=== PATIENT | female | born 1940 | race Caucasian/White ===

== ENCOUNTER 2018-04-20 06:42 | Emergency (ER) | payer OTHER ==
[2018-04-20 07:12] LABS: Absolute Neutrophil 6.1 K/uL (1.8-8.0); Basophils % 1.1 % (0-1.3); Eosinophils % 1.8 % (0-4.4); Hematocrit 40.9 % (36.0-45.0); Lymphocytes % 28.8 % (15.3-44.8); MCH 31.5 pg (27.0-35.0); MCV 91.9 fL (80-100); MPV 8.9 fL (7.6-11.3); Monocytes % 9.7 % (3.3-12.3); RBC Red Blood Cell Count 4.45 M/uL (3.86-4.86)
[2018-04-20] MEDS ORDERED: ONDANSETRON 4 MG/2 ML VIAL ONE (07:14)
[2018-04-20] MEDS ORDERED: MECLIZINE HCL 12.5 MG TAB ONE (07:14)
[2018-04-20] MEDS ORDERED: NA CHLORIDE 0.9% 1,000 ML ONE (07:15)
[2018-04-20] MEDS ORDERED: FAMOTIDINE 20 MG/2 ML VIAL IV ONE (07:15)
[2018-04-20 07:32] LABS: ALT/SGPT 22 U/L (12-78); AST/SGOT 18 U/L (15-37); Alkaline Phosphatase 46 U/L (45-117); BUN Blood Urea Nitrogen 29 mg/dL (7-18); Bicarbonate 25 mmol/L (21-32); Bilirubin Direct 0.2 mg/dL (0-0.2); Bilirubin Total 0.4 mg/dL (0.2-1.0); Glucose Level 115 mg/dL (74-106); Magnesium 2.4 mg/dL (1.8-2.4); NT PRO-BNP 168 pg/mL (<450); Potassium 3.8 mmol/L (3.5-5.1); Sodium Level 138 mmol/L (136-145); Troponin (Emerg Dept Use Only) < 0.02 ng/mL (0.0-0.045)
--- NOTE | 2018-04-20 07:37 | RAD REPORT ---
EXAM DESCRIPTION: Saida Single View04/20/2018 7:17 am CLINICAL HISTORY: Chest pain COMPARISON: 2016 FINDINGS: The lungs appear clear of acute infiltrate. The heart is normal size. Small to moderate h iatal hernia IMPRESSION: No acute abnormalities displayed
--- NOTE | 2018-04-20 07:40 | RAD REPORT ---
EXAM DESCRIPTION: CT - Head Brain Wo Cont - 04/20/2018 7:26 am CLINICAL HISTORY: Dizziness COMPARISON: None. TECHNIQUE: Computed axial tomography of the head was obtained. IV contrast was not requested. All CT scans are performed using dose optimization technique as appropriate and may include automated exposure control or mA/KV adjustment according to patient size. FINDINGS: An intracranial bleed is not seen . The ventricles are normal in caliber. No extra-axial fluid collection is noted. Fluid within the sinuses/ mastoids is not seen. IMPRESSION: No acute intracranial abnormality is seen. If patient's symptoms persist MRI of the bra in would be recommended.
[2018-04-20 07:51] LABS: Protime INR 0.98
[2018-04-20 09:23] LABS: Urine Blood NEGATIVE (NEG); Urine Glucose NEGATIVE (NEG); Urine Protein NEGATIVE (NEG)
[2018-04-20 09:31] LABS: Urine Bacteria <20 /HPF (<20); Urine Culture Reflex Order NOT NEEDED; Urine RBC <5 /HPF (NONE SEEN)
--- NOTE | 2018-04-20 10:44 | RAD REPORT ---
EXAM DESCRIPTION: MRI - Brain Wo Cont - 04/20/2018 10:26 am CLINICAL HISTORY: Syncope COMPARISON: Head CT April 20, 2018 TECHNIQUE: Axial, sagittal, and coronal magnetic resonance images of the brain were obtained. Contra st was not requested FINDINGS: Mild signal within periventricular, deep and subcortical white matter likely represent mil d ischemic changes secondary to small vessel disease. Diffusion-weighted/ADC mapping does not reveal evidence of acute infarction. The ventricles are normal caliber. An extra-axial fluid collection is not present Fluid within the sinuses/ mastoids is not seen. IMPRESSION: No acute abnormality displayed
--- NOTE | 2018-04-20 10:49 | RAD REPORT ---
EXAM DESCRIPTION: MRI - MRA Neck W/Wo Cont - 04/20/2018 10:25 am CLINICAL HISTORY: Syncope COMPARISON: None. TECHNIQUE: Magnetic resonance angiogram of the neck was performed. 19 cc MultiHance was administered intravenously. 3D MIPS reconstruction performed FINDINGS: Mild plaque is present within the carotid arteries. A high-grade stenosis not seen. An ane urysm is not seen. An approximately 30-40% stenosis involves the proximal right subclavian artery The vertebral arteries are codominant without visualization of an abnormality. IMPRESSION: Mild plaque within the carotid and right subclavian arteries. NASCET criteria used. Mild 0-49% stenosis Moderate 50-69% stenosis Severe 70-99% stenosis
--- NOTE | 2018-04-20 12:42 | EDPHYS ---
Physician Documentation [facility] Name: Treasure Mosley Age: 77 yrs Sex: Female : 1940 Arrival Date: 04/20/2018 Time: 06:45 Bed 7 Private MD: Sean Duong E ED Physician Samy Bautista HPI: 04/20 07:00 This 77 yrs old Female presents to ER via Wheelchair with complaints of cp Dizziness, Vomiting. 07:00 The patient presents with dizziness, lightheadedness. cp 07:00 Onset: The symptoms/episode began/occurred 2 day(s) ago. Modifying factors: the cp symptoms are aggravated by movement of head. Associated signs and symptoms: Pertinent positives: nausea, vomiting, general weakness, abdominal cramping. Severity of symptoms: in the emergency department the symptoms are unchanged despite home interventions. Patient's baseline: Neuro: alert and fully oriented, Motor: no deficits, Ambulation: walks without assistance, Speech: normal. Historical: - Allergies: 06:58 Aspirin; fc 06:58 PENICILLINS; fc 06:58 steroids; fc - Home Meds: 06:58 lisinopril 10 mg Oral tab 1 tab once daily [Active]; Synthroid 100 mcg Oral tab fc [Active]; folic acid 1 mg oral tab 1 tab once daily [Active]; Timolol Maleate Opht 1 drop [Active]; fenofibrate 145 mg Oral 1 tab once daily [Active]; - PMHx: 06:58 Glaucoma; Hypothyroidism; Hyperlipidemia; Hypertension; fc - PSHx: 06:58 Hysterectomy; fc - Immunization history:: Last tetanus immunization: unknown, Flu vaccine is up to date. - Social history:: Smoking status: Patient/guardian denies using tobacco, Patient/guardian denies using alcohol, street drugs. - Ebola Screening: : Patient negative for fever greater than or equal to 101.5 degrees Fahrenheit, and additional compatible Ebola Virus Disease symptoms Patient denies exposure to infectious person Patient denies travel to an Ebola-affected area in the 21 days before illness onset. ROS: 07:05 Constitutional: Positive for poor PO intake, Negative for body aches, chills, fever. cp 07:05 Eyes: Negative for injury, pain, redness, and discharge. cp 07:05 ENT: Negative for drainage from ear(s), ear pain, sore throat, difficulty swallowing, difficulty handling secretions. 07:05 Cardiovascular: Negative for chest pain, edema, palpitations. 07:05 Respiratory: Negative for cough, shortness of breath, wheezing. 07:05 Abdomen/GI: Positive for nausea, vomiting, abdominal cramps, Negative for diarrhea, constipation, anorexia, black/tarry stool, rectal bleeding. 07:05 Back: Negative for pain at rest, pain with movement, radiated pain. 07:05 : Negative for urinary symptoms. 07:05 MS/extremity: Negative for decreased range of motion, paresthesias. 07:05 Skin: Negative for cellulitis, rash. 07:05 Neuro: Positive for dizziness, general weakness, Negative for altered mental status, headache, loss of consciousness, syncope, near syncope. 07:05 All other systems are negative. Exam: 06:59 ECG was reviewed by the Attending Physician. cp 07:10 Constitutional: The patient appears in no acute distress, alert, awake, cp non-diaphoretic, non-toxic, well developed, well nourished. 07:10 Head/Face: Normocephalic, atraumatic. cp 07:10 Eyes: Periorbital structures: appear normal, Pupils: equal, round, and reactive to light and accomodation, Extraocular movements: intact throughout, Conjunctiva: normal, no exudate, no injection, Sclera: no appreciated abnormality, Lids and lashes: appear normal, bilaterally. 07:10 ENT: External ear(s): are unremarkable, Ear canal(s): are normal, clear, TM's: bulging, is not appreciated, bilaterally, dullness, bilaterally, erythema, is not appreciated, bilaterally, Nose: is normal, Mouth: Lips: moist, Oral mucosa: pink and intact, moist, Posterior pharynx: is normal, airway is patent, no erythema, no exudate, Voice: is normal. 07:10 Neck: ROM/movement: is normal, is supple, without pain, no range of motions limitations, no meningismus, no nuchal rigidity, Lymph nodes: no appreciated lymphadenopathy. 07:10 Chest/axilla: Inspection: normal, Palpation: is normal, no crepitus, no tenderness. 07:10 Cardiovascular: Rate: normal, Rhythm: regular, Pulses: Pulses are 2+ in right radial artery and left radial artery. Heart sounds: murmur, not appreciated, Edema: is not appreciated, JVD: is not appreciated. 07:10 Respiratory: the patient does not display signs of respiratory distress, Respirations: normal, no use of accessory muscles, no retractions, no splinting, no tachypnea, labored breathing, is not present, Breath sounds: are clear throughout, no decreased breath sounds, no stridor, no wheezing. 07:10 Abdomen/GI: Inspection: abdomen appears normal, Bowel sounds: active, all quadrants, Palpation: abdomen is soft and non-tender, in all quadrants, rebound tenderness, is not appreciated, voluntary guarding, is not appreciated, involuntary guarding, is not appreciated. 07:10 Back: pain, is absent, ROM is normal. 07:10 Musculoskeletal/extremity: Extremities: all appear grossly normal, with no appreciated pain with palpation. 07:10 Skin: abscess, not appreciated, no rash present. Vital Signs: 06:45 BP 207 / 99; Pulse 90; Resp 18; Temp 97.9(O); Pulse Ox 98% on R/A; Weight 54.43 kg (R); fc Height 5 ft. 2 in. (157.48 cm) (R); Pain 9/10; 07:12 BP 151 / 89 Supine; Pulse 81; Resp 18; Pulse Ox 98% on R/A; hj 07:12 BP 151 / 87 Sitting; Pulse 85; Resp 18; Pulse Ox 100% on R/A; hj 07:12 BP 161 / 81 Standing; Pulse 86; Resp 18; Pulse Ox 98% on R/A; hj 07:44 BP 150 / 78; Pulse 78; Resp 18; Pulse Ox 100% on R/A; hj 08:24 BP 155 / 78; Pulse 78; Resp 18; Pulse Ox 100% on R/A; hj 09:30 BP 148 / 75; Pulse 75; Resp 18; Pulse Ox 100% on R/A; hj 12:24 BP 156 / 75; Pulse 76; Resp 18; Pulse Ox 100% on R/A; hj 06:45 Body Mass Index 21.95 (54.43 kg, 157.48 cm) NIH Stroke Scale Scores: 07:05 NIHSS Score: 0 hb MDM: 06:47 Patient medically screened. cp 07:00 Differential diagnosis: cardiac arrhythmia, CVA, GI bleed, hypovolemia, idiopathic cp dizziness, TIA, vertigo. 12:40 Data reviewed: vital signs, nurses notes, lab test result(s), EKG, radiologic studies, cp CT scan, MRI, plain films. 12:40 Test interpretation: by ED physician or midlevel provider: ECG, plain radiologic cp studies. 12:40 Counseling: I had a detailed discussion with the patient and/or guardian regarding: the cp historical points, exam findings, and any diagnostic results supporting the discharge/admit diagnosis, the presence of at least one elevated blood pressure reading (>120/80) during this emergency department visit, lab results, radiology results, the need for outpatient follow up, an ruling machine feeder, a neurologist, to return to the emergency department if symptoms worsen or persist or if there are any questions or concerns that arise at home. 12:40 Response to treatment: the patient's symptoms have markedly improved after treatment, cp VSS. Radiology studies negative for acute findings. Patient reports dizziness improved and was observed ambulating to restroom in ED with steady gait, and as a result, I will discharge patient. 04/20 06:57 Order name: Basic Metabolic Panel; Complete Time: 07:41 04/20 07:41 Interpretation: Normal except: GLUC 115; BUN 29; GFR 62. 04/20 06:57 Order name: CBC with Diff; Complete Time: 07:41 04/20 07:41 Interpretation: Normal except: PLT 475. 04/20 06:57 Order name: LFT's; Complete Time: 07:41 04/20 06:57 Order name: Magnesium; Complete Time: 07:41 04/20 06:57 Order name: NT PRO-BNP; Complete Time: 07:41 04/20 06:57 Order name: PT-INR; Complete Time: 08:32 04/20 08:33 Interpretation: Reviewed. 04/20 06:57 Order name: CT Head Brain wo Cont; Complete Time: 07:41 04/20 06:57 Order name: Troponin (emerg Dept Use Only); Complete Time: 07:41 04/20 06:57 Order name: XRAY Chest (1 view); Complete Time: 07:41 04/20 06:57 Order name: Urine Microscopic Only; Complete Time: 10:01 04/20 07:45 Order name: MRI - Brain Wo Cont; Complete Time: 12:07 bd 04/20 12:07 Interpretation: Report reviewed. cp 04/20 09:21 Order name: Urine Dipstick--Ancillary (enter results); Complete Time: 10:01 bd 04/20 06:57 Order name: EKG; Complete Time: 06:59 cp 04/20 06:57 Order name: Cardiac monitoring; Complete Time: 07:00 cp 04/20 06:57 Order name: EKG - Nurse/Tech; Complete Time: 07:00 cp 04/20 06:57 Order name: IV Saline Lock; Complete Time: 07:00 cp 04/20 06:57 Order name: Labs collected and sent; Complete Time: 07:00 cp 04/20 06:57 Order name: O2 Per Protocol; Complete Time: 07:00 cp 04/20 06:57 Order name: O2 Sat Monitoring; Complete Time: 07:00 cp 04/20 06:57 Order name: Orthostatics; Complete Time: 07:15 cp 04/20 06:57 Order name: Urine Dipstick-Ancillary (obtain specimen); Complete Time: 09:14 cp 04/20 10:03 Order name: MRA Neck W/Wo Cont; Complete Time: 12:07 EDMS 04/20 12:08 Order name: Misc. Order: ambulate patient; Complete Time: 12:21 cp EC:59 Rate is 84 beats/min. Rhythm is regular. MN interval is normal. QRS interval is normal. cp QT interval is normal. No ST changes noted. Reviewed by me. Administered Medications: 07:12 Drug: NS 0.9% 1000 ml Route: IV; Rate: 75 ml/hr; Site: right forearm; hj 07:13 Drug: Meclizine 25 mg Route: PO; hb 08:00 Follow up: Response: No adverse reaction hb 07:14 Drug: Pepcid 20 mg Route: IVP; Site: right forearm; hb 08:00 Follow up: Response: No adverse reaction hb 07:14 Drug: NS 0.9% 250 ml Route: IV; Rate: bolus; Site: right forearm; hb 07:40 Follow up: Response: No adverse reaction; IV Status: Completed infusion hb 07:15 Drug: Zofran 4 mg Route: IVP; Site: right forearm; hb 08:00 Follow up: Response: No adverse reaction hb Disposition: 19:03 Co-signature as Attending Physician, Samy Bautista MD. pkl Disposition: 04/20/18 12:41 Discharged to Home. Impression: Dizziness and giddiness, Nausea and vomiting. - Condition is Stable. - Discharge Instructions: Dizziness, Nausea and Vomiting, Adult, Vertigo. - Prescriptions for Meclizine 25 mg Oral Tablet - take 1 tablet by ORAL route every 8 hours As needed; 30 tablet. Pepcid 20 mg Oral Tablet - take 1 tablet by ORAL route every 12 hours for 10 days; 20 tablet. Zofran 4 mg Oral Tablet - take 1 tablet by ORAL route every 12 hours As needed; 20 tablet. - Medication Reconciliation Form, Thank You Letter, Antibiotic Education, Prescription Opioid Use form. - Follow up: Private Physician; When: 1 - 2 days; Reason: Recheck today's complaints. - Problem is new. - Symptoms have improved. NIH Stroke Scale - NIH Stroke Score Date: 04/20/2018 Time: 07:05 Total Score = 0 1a. Level of Consciousness (LOC) - 0(Alert) 1b. Level of Consciousness (LOC) (Year \T\ Age) - 0(Both) 1c. LOC Commands (Open \T\ Closes Eyes/Malware Analyst) - 0(Both) 2. Best Gaze (Lateral Gaze Paresis) - 0(Normal) 3. Visual Field Loss - 0(No visual loss) 4. Facial Palsy - 0(Normal) 5a. Left Arm: Motor (10-second hold) - 0(No drift) 5b. Right Arm: Motor (10-second hold) - 0(No drift) 6a. Left Leg: Motor (5-second hold - always test supine) - 0(No drift) 6b. Right Leg: Motor (5-second hold - always test supine) - 0(No drift) 7. Limb Ataxia (finger/nose \T\ heel/schuster - test with eyes open) - 0(Absent) 8. Sensory Loss (pinprick arms/legs/face) - 0(Normal) 9. Best Language: Aphasia (description/naming/reading) - 0(No aphasia) 10. Dysarthria (speech clarity - read or repeat words) - 0(Normal) 11. Extinction and Inattention (visual/tactile/auditory/spatial/personal) - 0(No abnormality) Initials: Signatures: Dispatcher [employer] EDMS Samy Bautista MD MD pkl Chretien, Felicia RN RN Homar Posada RN RN Christian Scott PA PA cp Valentina Laird, RN RN Corrections: (The following items were deleted from the chart) 12:50 12:41 04/20/2018 12:41 Discharged to Home. Impression: Dizziness and giddiness; hj Nausea and vomiting. Condition is Stable. Forms are Medication Reconciliation Form, Thank You Letter, Antibiotic Education, Prescription Opioid Use. Follow up: Private Physician; When: 1 - 2 days; Reason: Recheck today's complaints. Problem is new. Symptoms have improved. cp
--- NOTE | 2018-04-20 12:42 | ER ---
Nurse's Notes [facility] Name: Treasure Mosley Age: 77 yrs Sex: Female : 1940 Arrival Date: 04/20/2018 Time: 06:45 Bed 7 Private MD: Sean Duong E Diagnosis: Dizziness and giddiness;Nausea and vomiting Presentation: 04/20 06:45 Presenting complaint: Patient states: that she has been having nausea, vomiting, fc dizziness, headache and abd cramping for 2 days. Transition of care: patient was not received from another setting of care. Onset of symptoms was April 18, 2018. Risk Assessment: Do you want to hurt yourself or someone else? Patient reports no desire to harm self or others. Initial Sepsis Screen: Does the patient meet any 2 criteria? No. Patient's initial sepsis screen is negative. Does the patient have a suspected source of infection? No. Patient's initial sepsis screen is negative. Care prior to arrival: None. 06:45 Method Of Arrival: Wheelchair 06:45 Acuity: CARLOS 3 fc Triage Assessment: 07:00 General: Appears in no apparent distress. uncomfortable, Behavior is calm, cooperative, hj appropriate for age. Pain: Denies pain. EENT: No signs and/or symptoms were reported regarding the EENT system. Neuro: Level of Consciousness is awake, alert, obeys commands, Oriented to person, place, time, situation, Appropriate for age Reports dizziness. Cardiovascular: Capillary refill < 3 seconds Patient's skin is warm and dry. Respiratory: Airway is patent Respiratory effort is even, unlabored, Respiratory pattern is regular, symmetrical. GI: Reports. : No signs and/or symptoms were reported regarding the genitourinary system. Derm: No signs and/or symptoms reported regarding the dermatologic system. Musculoskeletal: No signs and/or symptoms reported regarding the musculoskeletal system. Historical: - Allergies: 06:58 Aspirin; 06:58 PENICILLINS; 06:58 steroids; fc - Home Meds: 06:58 lisinopril 10 mg Oral tab 1 tab once daily [Active]; Synthroid 100 mcg Oral tab fc [Active]; folic acid 1 mg oral tab 1 tab once daily [Active]; Timolol Maleate Opht 1 drop [Active]; fenofibrate 145 mg Oral 1 tab once daily [Active]; - PMHx: 06:58 Glaucoma; Hypothyroidism; Hyperlipidemia; Hypertension; fc - PSHx: 06:58 Hysterectomy; fc - Immunization history:: Last tetanus immunization: unknown, Flu vaccine is up to date. - Social history:: Smoking status: Patient/guardian denies using tobacco, Patient/guardian denies using alcohol, street drugs. - Ebola Screening: : Patient negative for fever greater than or equal to 101.5 degrees Fahrenheit, and additional compatible Ebola Virus Disease symptoms Patient denies exposure to infectious person Patient denies travel to an Ebola-affected area in the 21 days before illness onset. Screenin:56 Abuse screen: Denies threats or abuse. Nutritional screening: No deficits noted. fc Tuberculosis screening: No symptoms or risk factors identified. Fall Risk None identified. Assessment: 06:57 General: Appears uncomfortable, Behavior is cooperative. Pain: Complains of pain in Pt la1 C/O headache and belly pain before vomiting. Neuro: Level of Consciousness is awake, alert, obeys commands, Oriented to person, place, time, situation, Service Desk Technician are equal bilaterally Moves all extremities. Full function Gait is steady, Speech is normal, Facial symmetry appears normal, Pupils are PERRLA. Cardiovascular: Denies chest pain, shortness of breath, Heart tones S1 S2 present. Respiratory: Airway is patent Respiratory effort is even, unlabored, Respiratory pattern is regular, symmetrical, Breath sounds are clear bilaterally. GI: Abdomen is round non-distended, Pt is actively vomiting Bowel sounds present X 4 quads. Abd is soft and non tender X 4 quads. : No signs and/or symptoms were reported regarding the genitourinary system. 07:43 Reassessment: Patient appears in no apparent distress at this time. Patient and/or hb family updated on plan of care and expected duration. Pain level reassessed. Patient is alert, oriented x 3, equal unlabored respirations, skin warm/dry/pink. Patient denies pain at this time. Patient states symptoms have improved. 08:23 Reassessment: Patient and/or family updated on plan of care and expected duration. Pain hj level reassessed. Patient is alert, oriented x 3, equal unlabored respirations, skin warm/dry/pink. Patient states symptoms have improved. 09:30 Reassessment: Patient and/or family updated on plan of care and expected duration. Pain hj level reassessed. Patient is alert, oriented x 3, equal unlabored respirations, skin warm/dry/pink. awaiting results and POC;. 10:30 Reassessment: Patient and/or family updated on plan of care and expected duration. Pain hj level reassessed. Patient is alert, oriented x 3, equal unlabored respirations, skin warm/dry/pink. Patient denies pain at this time. Patient states symptoms have improved. 11:30 Reassessment: Patient and/or family updated on plan of care and expected duration. Pain hj level reassessed. Patient is alert, oriented x 3, equal unlabored respirations, skin warm/dry/pink. provider in room for POC:. 12:22 Reassessment: pt able to ambulate to bathroom back to room with steady gait; provider hj aware;. Vital Signs: 06:45 BP 207 / 99; Pulse 90; Resp 18; Temp 97.9(O); Pulse Ox 98% on R/A; Weight 54.43 kg (R); fc Height 5 ft. 2 in. (157.48 cm) (R); Pain 9/10; 07:12 BP 151 / 89 Supine; Pulse 81; Resp 18; Pulse Ox 98% on R/A; hj 07:12 BP 151 / 87 Sitting; Pulse 85; Resp 18; Pulse Ox 100% on R/A; hj 07:12 BP 161 / 81 Standing; Pulse 86; Resp 18; Pulse Ox 98% on R/A; hj 07:44 BP 150 / 78; Pulse 78; Resp 18; Pulse Ox 100% on R/A; hj 08:24 BP 155 / 78; Pulse 78; Resp 18; Pulse Ox 100% on R/A; hj 09:30 BP 148 / 75; Pulse 75; Resp 18; Pulse Ox 100% on R/A; hj 12:24 BP 156 / 75; Pulse 76; Resp 18; Pulse Ox 100% on R/A; hj 06:45 Body Mass Index 21.95 (54.43 kg, 157.48 cm) fc NIH Stroke Scale Scores: 07:05 NIHSS Score: 0 hb ED Course: 06:45 Patient arrived in ED. es 06:45 Sean Duong MD is Private Physician. es 06:45 Arm band placed on Patient placed in an exam room, on a stretcher. fc 06:45 Patient has correct armband on for positive identification. Placed in gown. Bed in low fc position. Call light in reach. patient monitor on. Pulse ox on. NIBP on. 06:45 No provider procedures requiring assistance completed. fc 06:47 Christian Marx PA is PHCP. cp 06:47 Samy Bautista MD is Attending Physician. cp 06:55 Triage completed. fc 06:59 Inserted saline lock: 20 gauge in right forearm, using aseptic technique. Blood la1 collected. 07:00 Homar Wells, KULDEEP is Primary Nurse. hj 07:02 EKG done, by underwriting technician. reviewed by Christian LOPEZ. at1 07:18 XRAY Chest (1 view) In Process Unspecified. EDMS 07:25 CT Head Brain wo Cont In Process Unspecified. EDMS 07:26 CT completed. Patient tolerated procedure well. Patient moved back from CT. bq 09:15 Patient moved to MRI via wheelchair. lc 09:15 Urine Microscopic Only Sent. hj 10:03 MRI - Brain Wo Cont In Process Unspecified. EDMS 10:25 MRA Neck W/Wo Cont In Process Unspecified. EDMS 10:26 Patient moved back from MRI. lc 12:49 IV discontinued, intact, bleeding controlled, No redness/swelling at site. Pressure hj dressing applied. Administered Medications: 07:12 Drug: NS 0.9% 1000 ml Route: IV; Rate: 75 ml/hr; Site: right forearm; hj 07:13 Drug: Meclizine 25 mg Route: PO; hb 08:00 Follow up: Response: No adverse reaction hb 07:14 Drug: Pepcid 20 mg Route: IVP; Site: right forearm; hb 08:00 Follow up: Response: No adverse reaction hb 07:14 Drug: NS 0.9% 250 ml Route: IV; Rate: bolus; Site: right forearm; hb 07:40 Follow up: Response: No adverse reaction; IV Status: Completed infusion hb 07:15 Drug: Zofran 4 mg Route: IVP; Site: right forearm; hb 08:00 Follow up: Response: No adverse reaction hb Outcome: 12:41 Discharge ordered by . cp 12:49 Discharged to home ambulatory, with family. hj 12:49 Condition: stable 12:49 Discharge instructions given to patient, family, Instructed on discharge instructions, follow up and referral plans. medication usage, Demonstrated understanding of instructions, follow-up care, medications, Prescriptions given X 3. 12:50 Patient left the ED. hj NIH Stroke Scale - NIH Stroke Score Date: 04/20/2018 Time: 07:05 Total Score = 0 1a. Level of Consciousness (LOC) - 0(Alert) 1b. Level of Consciousness (LOC) (Year \T\ Age) - 0(Both) 1c. LOC Commands (Open \T\ Closes Eyes/Tooth Cutter Pinion) - 0(Both) 2. Best Gaze (Lateral Gaze Paresis) - 0(Normal) 3. Visual Field Loss - 0(No visual loss) 4. Facial Palsy - 0(Normal) 5a. Left Arm: Motor (10-second hold) - 0(No drift) 5b. Right Arm: Motor (10-second hold) - 0(No drift) 6a. Left Leg: Motor (5-second hold - always test supine) - 0(No drift) 6b. Right Leg: Motor (5-second hold - always test supine) - 0(No drift) 7. Limb Ataxia (finger/nose \T\ heel/schuster - test with eyes open) - 0(Absent) 8. Sensory Loss (pinprick arms/legs/face) - 0(Normal) 9. Best Language: Aphasia (description/naming/reading) - 0(No aphasia) 10. Dysarthria (speech clarity - read or repeat words) - 0(Normal) 11. Extinction and Inattention (visual/tactile/auditory/spatial/personal) - 0(No abnormality) Initials: hb Signatures: Dispatcher [employer] Betty Rainey Lorena lc Quilty, Betty bq Chretien, Felicia RN RN Rosa Maria Rodriguez, shift mgr EKG Tat1 [place] RN RN la1 Homar Wells RN RN hj Page, Corey, PA PA cp Baxter, Heather RN RN hb
--- NOTE | 2018-04-21 14:38 | EKG ---
Test Date: 2018-04-20 Test Time: 06:56:22 [employer]: SANDRA MEASUREMENT RESULTS: Intervals: Rate: 84 FL: 160 QRSD: 82 QT: 380 QTc: 449 [place]: P: 60 FL: 160 QRS: 24 T: 42 INTERPRETIVE STATEMENTS: Normal sinus rhythm Normal ECG Compared to ECG 05/02/2010 10:24:30 No significant changes Electronically Signed On 04-21-18 14:36:56 MAT GAUGER by Elijah Alvarado
== END 2018-04-20 12:50 | disposition home or self-care (01) ==
LOC: ER 06:42
DX: R11.2 Nausea with vomiting, unspecified (principal); I10 Essential (primary) hypertension; E78.5 Hyperlipidemia, unspecified; E03.9 Hypothyroidism, unspecified; Z88.0 Allergy status to penicillin; Z88.6 Allergy status to analgesic agent; Z88.8 Allergy status to other drugs, medicaments and biological substances
CPT/HCPCS: 36415; 70450; 70549; 70551; 71045; 80048; 80076; 83735; 83880; 84484; 85025; 85610; 93005; A9577; J2405; J7030; 81003; 81015; 96365; 96375; 99285

== ENCOUNTER 2018-09-21 08:55 | Emergency (ER) | payer OTHER ==
[2018-09-21 10:25] LABS: Absolute Lymphocytes (CBC) 1.8 K/uL (0.7-4.9); Absolute Monocytes 1.2 K/uL (0.1-1.3); Absolute Neutrophil 12.7 K/uL (1.8-8.0); Basophils % 0.5 % (0-1.3); Eosinophils % 0.3 % (0-4.4); Hematocrit 41.8 % (36.0-45.0); Lymphocytes % 11.1 % (15.3-44.8); MPV 8.5 fL (7.6-11.3); Monocytes % 7.5 % (3.3-12.3); RBC Red Blood Cell Count 4.58 M/uL (3.86-4.86)
[2018-09-21 10:32] LABS: Protime INR 1.08
[2018-09-21 10:55] LABS: ALT/SGPT 19 U/L (12-78); AST/SGOT 17 U/L (15-37); Albumin 3.8 g/dL (3.4-5.0); Alkaline Phosphatase 62 U/L (45-117); BUN Blood Urea Nitrogen 18 mg/dL (7-18); Bicarbonate 26 mmol/L (21-32); Bilirubin Direct 0.1 mg/dL (0-0.2); Bilirubin Total 0.4 mg/dL (0.2-1.0); Glucose Level 89 mg/dL (74-106); Magnesium 2.3 mg/dL (1.8-2.4); NT PRO-BNP 429 pg/mL (<450); Potassium 4.1 mmol/L (3.5-5.1); Protein, Total 8.9 g/dL (6.4-8.2); Sodium Level 137 mmol/L (136-145); Troponin (Emerg Dept Use Only) < 0.02 ng/mL (0.0-0.045)
--- NOTE | 2018-09-21 11:15 | RAD REPORT ---
EXAM DESCRIPTION: RAD - Chest Single View - 09/21/2018 11:07 am CLINICAL HISTORY: COUGH Chest pain. COMPARISON: Chest Single View dated 04/20/2018; Chest Single View dated 04/18/2016; CHEST PA AND LAT 2 VIEW dated 05/02/2010 FINDINGS: Portable technique limits examination quality. The lungs are grossly clear. The heart is normal in size. No displaced fractures.Small hiatal hernia. IMPRESSION: No acute intrathoracic process suspected.
[2018-09-21] MEDS ORDERED: CEFTRIAXONE/SWI 1gm 2 GM/20 ML SYR ONE (11:22)
--- NOTE | 2018-09-21 11:25 | RAD REPORT ---
EXAM DESCRIPTION: CT - Head Brain Wo Cont - 09/21/2018 11:16 am CLINICAL HISTORY: Fever, headache, sore throat, stiff neck COMPARISON: CT head March 2018 TECHNIQUE: Axial 5 mm thick images of the head were obtained without IV contrast. All CT scans are performed using dose optimization technique as appropriate and may include automated exposure control or mA/KV adjustment according to patient size. FINDINGS: No intracranial hemorrhage, mass, edema or shift of mid-line structures. No acute infarcti on changes seen. No cortical edema or sulcal effacement. Atrophy changes are mild. There are chronic ischemic changes in the white matter. 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 Intracranial findings are not clearly different from comparison. Ventricles are in p roportion to any volume loss. No acute globe or orbital content abnormality. Mastoid air cells and visualized portions of the paranasal sinuses are clear. No acute bony findings. IMPRESSION: Negative non-contrast CT head examination for acute finding. Intracranial findings are similar to March 2018.
--- NOTE | 2018-09-21 11:32 | RAD REPORT ---
EXAM DESCRIPTION: CT - Soft Tissue Neck W/Contr - 09/21/2018 11:16 am CLINICAL HISTORY: Headache, fever, sore throat, stiff neck COMPARISON: None TECHNIQUE: During dynamic enhancement using 100 milliliters nonionic IV contrast, axial 5 millimeter thick images of the neck were obtained. All CT scans are performed using dose optimization technique as appropriate and may include automated exposure control or mA/KV adjustment according to patient size. FINDINGS: Intracranial contents are grossly normal. Fall CT head examination was performed and separ ately detailed. Mastoid air cells are clear. Paranasal sinuses are clear. No dissection or other significant vascular finding identified. Cervical esophagus shows no circumferential wall thickening, mass or edema. There is no prevertebral soft tissue thickening. The parotid, submandibular and thyroid gland tissue show no suspicious findin gs. No mass or lymphadenopathy in the cervical soft tissues. A few scattered lymph nodes are present well under 1 centimeter in size. No pharyngeal mucosal mass or true asymmetry. Parapharyngeal fat is normal. 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 No tonsillar mass or abscess. No tongue base abnormality. Epiglottis is normal. No laryngeal mass. Cervical bodies are normal in height. No compression or acute vertebral body finding. There is a slig ht retrolisthesis of C3 on C4. The C2-3 through C6-7 disc spaces all show loss in disc height. Anteri or endplate spurring seen at all these levels. Central canal detail is inherently limited. There does appear to be a very large 8 millimeter midline disc herniation at C2-3. This causes a very severe central spinal stenosis. No foraminal stenosis. P rominent protruding disc material and endplate spurring at C3-4 also causes very significant central spinal stenosis down to 4- 5 mm. Bilateral bony foraminal encroachment is present. Slight retrolisthe sis of C4 contributes to central spinal stenosis of 7- 8 mm. Mild bilateral foraminal encroachment pr esent. IMPRESSION: No prevertebral or tonsillar abscess. No pharyngeal mucosal mass or suspicious soft tiss ue finding identifiable. No abnormal lymphadenopathy. Central canal detail is inherently limited; however, there appears to be a very large 8 millimeter C2 -3 disc herniation causing severe cord flattening and severe central spinal stenosis. Significant protruding disc material and spurring cause cord flattening in very significant central s elie stenosis at C3-4.
[2018-09-21 11:56] LABS: Urine Blood TRACE (NEG); Urine Glucose NEGATIVE (NEG); Urine Protein NEGATIVE (NEG); Urine Specific Gravity 1.015 (1.005-1.030)
--- NOTE | 2018-09-21 12:01 | ER ---
Nurse's Notes [facility] Name: Treasure Mosley Age: 78 yrs Sex: Female : 1940 Arrival Date: 09/21/2018 Time: 09:00 Bed 5 Private MD: Sean Duong E Diagnosis: Strain of muscle, fascia and tendon at neck level;Cervical disc [id number] SEVERE 8MM HERNIATION, CORD FLATENING Presentation: 09/21 09:05 Presenting complaint: Patient states: stiff neck x 3-4 days. Pt reports before that, ss approximately 10 days ago, she had a sore throat and ear ache that she began taking antibiotics for. Transition of care: patient was not received from another setting of care. Onset of symptoms was September 17, 2018. Risk Assessment: Do you want to hurt yourself or someone else? Patient reports no desire to harm self or others. Initial Sepsis Screen: Does the patient meet any 2 criteria? No. Patient's initial sepsis screen is negative. Does the patient have a suspected source of infection? No. Patient's initial sepsis screen is negative. Care prior to arrival: None. 09:05 Method Of Arrival: Ambulatory ss 09:05 Acuity: CARLOS 3 ss Triage Assessment: 09:11 General: Appears in no apparent distress. uncomfortable, Behavior is calm, cooperative, tw2 appropriate for age. Pain: Complains of pain in neck. EENT: No signs and/or symptoms were reported regarding the EENT system. Neuro: Level of Consciousness is awake, alert, obeys commands, Oriented to person, place, time, situation. Cardiovascular: Capillary refill < 3 seconds. Respiratory: Airway is patent Respiratory effort is even, unlabored, Respiratory pattern is regular, symmetrical. GI: Reports nausea, "from the pain". : No signs and/or symptoms were reported regarding the genitourinary system. Derm: No signs and/or symptoms reported regarding the dermatologic system. Musculoskeletal: Range of motion: limited in neck Reports pain in neck. Historical: - Allergies: 09:12 Aspirin; ss 09:12 PENICILLINS; ss 09:12 steroids; ss - Home Meds: 09:13 fenofibrate 145 MG Oral 1 tab once daily [Active]; folic acid 1 mg Oral tab 1 tab once tw2 daily [Active]; lisinopril 10 mg Oral tab 1 tab once daily [Active]; Synthroid 100 mcg Oral tab [Active]; Timolol Maleate Opht 1 drop [Active]; - PMHx: 09:12 Glaucoma; Hyperlipidemia; Hypertension; Hypothyroidism; ss - PSHx: 09:12 Hysterectomy; ss - Immunization history:: Adult Immunizations unknown. - Social history:: Smoking status: Patient/guardian denies using tobacco. - Ebola Screening: : Patient denies exposure to infectious person Patient denies travel to an Ebola-affected area in the 21 days before illness onset. - Family history:: not pertinent. Screenin:13 Abuse screen: Denies threats or abuse. Nutritional screening: No deficits noted. tw2 Tuberculosis screening: No symptoms or risk factors identified. Fall Risk None identified. Assessment: :13 Reassessment: see triage assessment. tw2 11:01 Reassessment: Patient appears in no apparent distress at this time. No changes from tw2 previously documented assessment. Patient and/or family updated on plan of care and expected duration. Pain level reassessed. Patient is alert, oriented x 3, equal unlabored respirations, skin warm/dry/pink. 12:23 Reassessment: Patient appears in no apparent distress at this time. No changes from tw2 previously documented assessment. Patient and/or family updated on plan of care and expected duration. Pain level reassessed. Patient is alert, oriented x 3, equal unlabored respirations, skin warm/dry/pink. 12:23 Reassessment: pt denies need for pain medicine at this time. tw2 13:05 Reassessment: Patient appears in no apparent distress at this time. No changes from tw2 previously documented assessment. Patient and/or family updated on plan of care and expected duration. Pain level reassessed. Patient is alert, oriented x 3, equal unlabored respirations, skin warm/dry/pink. 13:41 Reassessment: Patient appears in no apparent distress at this time. No changes from tw2 previously documented assessment. Patient and/or family updated on plan of care and expected duration. Pain level reassessed. Patient is alert, oriented x 3, equal unlabored respirations, skin warm/dry/pink. Vital Signs: 09:12 BP 162 / 77; Pulse 105; Resp 16; Temp 97.6(O); Pulse Ox 99% on R/A; Weight 54.43 kg; Height 5 ft. 2 in. (157.48 cm); Pain 9/10; 09:31 BP 134 / 66; Pulse 102; Resp 17; Pulse Ox 99% on R/A; tw2 11:01 BP 149 / 80; Pulse 100; Resp 17; Pulse Ox 99% on R/A; tw2 12:23 BP 131 / 69; Pulse 106; Resp 17; Pulse Ox 100% ; tw2 13:05 BP 146 / 76; Pulse 105; Resp 19; Pulse Ox 98% on R/A; tw2 13:41 BP 149 / 86; Pulse 109; Resp 19; Pulse Ox 99% on R/A; tw2 09:12 Body Mass Index 21.95 (54.43 kg, 157.48 cm) ED Course: 09:00 Patient arrived in ED. dl4 09:01 Sean Duong MD is Private Physician. dl4 09:01 Bed in low position. Call light in reach. Pulse ox on. NIBP on. tw2 09:07 Triage completed. ss 09:10 Christian Tinoco MD is Attending Physician. [facility] 09:11 Sofy Buthcer, KULDEEP is Primary Nurse. tw2 09:12 Arm band placed on. tw2 10:15 First set of blood cultures drawn. Inserted saline lock: 22 gauge in right antecubital tw2 area, using aseptic technique. Blood collected. 10:23 Radiology exam delayed due to lab results not completed at this time. (BUN/Creatinine). 10:27 EKG done, by medical technical writer. reviewed by Christian Tinoco MD. sm3 11:01 Second set of blood cultures drawn. tw2 11:07 XRAY Chest (1 view) In Process Unspecified. EDMS 11:16 CT Soft Tissue Neck W/contr In Process Unspecified. EDMS 11:17 Head Brain Wo Cont In Process Unspecified. EDMS 11:18 CT completed. Patient tolerated procedure well. Patient moved to CT via wheelchair. sw Patient moved to radiology. Patient moved back from CT. 13:41 No provider procedures requiring assistance completed. Patient transferred, IV remains tw2 in place. Administered Medications: 12:00 Drug: Rocephin - (cefTRIAXone) 2 grams {Note: IVP available only from pharmacy.} Route: tw2 IVPB; Infused Over: 5 mins; Site: left antecubital; 12:24 Follow up: Response: No adverse reaction; IV Status: Completed infusion tw2 12:20 Drug: Decadron - Dexamethasone 10 mg Route: IVP; Site: left antecubital; tw2 12:30 Follow up: Response: No adverse reaction tw2 Outcome: 12:00 ER care complete, transfer ordered by MD. buckner 13:41 Transferred by ground EMS to [facility]. tw2 13:41 Condition: stable 13:41 Instructed on follow up and referral plans. the need for transfer, Demonstrated understanding of follow-up care. 13:48 Patient left the ED. tw2 Signatures: Dispatcher [employer] EDMS Christian Tinoco MD MD cha Jones, Celeste Douglas, RN RN Florinda Horner Tara RN RN tw2 Vikki Carmichael 3 Khurram Mathews dl4 Corrections: (The following items were deleted from the chart) 11:07 10:50 In radiology for Head Brain Wo Cont+CT.RAD.BRZ. ED EDMS
--- NOTE | 2018-09-21 12:01 | EDPHYS ---
Physician Documentation [facility] Name: Treasure Mosley Age: 78 yrs Sex: Female : 1940 Arrival Date: 09/21/2018 Time: 09:00 Bed 5 Private MD: Sean Duong E ED Physician Christian Tinoco HPI: 09/21 09:51 This 78 yrs old Female presents to ER via Ambulatory with complaints of Stiff sita Neck. 09:51 The patient or guardian complains of decreased range of motion, pain. The symptoms are sita located diffusely. Onset: The symptoms/episode began/occurred 3 day(s) ago. Context: The problem was sustained at home. Associated signs and symptoms: The patient has no apparent associated signs or symptoms. The pain does not radiate. Modifying factors: The symptoms are alleviated by nothing. the symptoms are aggravated by movement. Severity of symptoms: At their worst the symptoms were moderate, in the emergency department the symptoms are unchanged. The patient has not experienced similar symptoms in the past. Historical: - Allergies: 09:12 Aspirin; ss 09:12 PENICILLINS; ss 09:12 steroids; ss - Home Meds: 09:13 fenofibrate 145 MG Oral 1 tab once daily [Active]; folic acid 1 mg Oral tab 1 tab once tw2 daily [Active]; lisinopril 10 mg Oral tab 1 tab once daily [Active]; Synthroid 100 mcg Oral tab [Active]; Timolol Maleate Opht 1 drop [Active]; - PMHx: 09:12 Glaucoma; Hyperlipidemia; Hypertension; Hypothyroidism; ss - PSHx: 09:12 Hysterectomy; ss - Immunization history:: Adult Immunizations unknown. - Social history:: Smoking status: Patient/guardian denies using tobacco. - Ebola Screening: : Patient denies exposure to infectious person Patient denies travel to an Ebola-affected area in the 21 days before illness onset. - Family history:: not pertinent. ROS: 09:51 Constitutional: Negative for fever, chills, and weight loss, Eyes: Negative for injury, sita pain, redness, and discharge, ENT: Negative for injury, pain, and discharge, Cardiovascular: Negative for chest pain, palpitations, and edema, Respiratory: Negative for shortness of breath, cough, wheezing, and pleuritic chest pain, Abdomen/GI: Negative for abdominal pain, nausea, vomiting, diarrhea, and constipation, Back: Negative for injury and pain, : Negative for injury, bleeding, discharge, and swelling, MS/Extremity: Negative for injury and deformity, Skin: Negative for injury, rash, and discoloration, Neuro: Negative for headache, weakness, numbness, tingling, and seizure, Psych: Negative for depression, anxiety, suicide ideation, homicidal ideation, and hallucinations, Allergy/Immunology: Negative for hives, rash, and allergies, Endocrine: Negative for neck swelling, polydipsia, polyuria, polyphagia, and marked weight changes, Hematologic/Lymphatic: Negative for swollen nodes, abnormal bleeding, and unusual bruising. 09:51 Neck: Positive for pain with movement, pain at rest. Exam: 09:51 Constitutional: This is a well developed, well nourished patient who is awake, alert, sita and in no acute distress. Head/Face: Normocephalic, atraumatic. Eyes: Pupils equal round and reactive to light, extra-ocular motions intact. Lids and lashes normal. Conjunctiva and sclera are non-icteric and not injected. Cornea within normal limits. Periorbital areas with no swelling, redness, or edema. ENT: Nares patent. No nasal discharge, no septal abnormalities noted. Tympanic membranes are normal and external auditory canals are clear. Oropharynx with no redness, swelling, or masses, exudates, or evidence of obstruction, uvula midline. Mucous membranes moist. Chest/axilla: Normal chest wall appearance and motion. Nontender with no deformity. No lesions are appreciated. Cardiovascular: Regular rate and rhythm with a normal S1 and S2. No gallops, murmurs, or rubs. Normal PMI, no JVD. No pulse deficits. Respiratory: Lungs have equal breath sounds bilaterally, clear to auscultation and percussion. No rales, rhonchi or wheezes noted. No increased work of breathing, no retractions or nasal flaring. Abdomen/GI: Soft, non-tender, with normal bowel sounds. No distension or tympany. No guarding or rebound. No evidence of tenderness throughout. Back: No spinal tenderness. No costovertebral tenderness. Full range of motion. Female : Normal external genitalia. Skin: Warm, dry with normal turgor. Normal color with no rashes, no lesions, and no evidence of cellulitis. MS/ Extremity: Pulses equal, no cyanosis. Neurovascular intact. Full, normal range of motion. Neuro: Awake and alert, GCS 15, oriented to person, place, time, and situation. Cranial nerves II-XII grossly intact. Motor strength 5/5 in all extremities. Sensory grossly intact. Cerebellar exam normal. Normal gait. Psych: Awake, alert, with orientation to person, place and time. Behavior, mood, and affect are within normal limits. 09:51 Neck: ROM/movement: limited range of motion, Meningeal signs: are not present, Kernig's sign is negative, Brudzinski's sign is negative, nuchal rigidity, is present. Vital Signs: 09:12 BP 162 / 77; Pulse 105; Resp 16; Temp 97.6(O); Pulse Ox 99% on R/A; Weight 54.43 kg; ss Height 5 ft. 2 in. (157.48 cm); Pain 9/10; 09:31 BP 134 / 66; Pulse 102; Resp 17; Pulse Ox 99% on R/A; tw2 11:01 BP 149 / 80; Pulse 100; Resp 17; Pulse Ox 99% on R/A; tw2 12:23 BP 131 / 69; Pulse 106; Resp 17; Pulse Ox 100% ; tw2 13:05 BP 146 / 76; Pulse 105; Resp 19; Pulse Ox 98% on R/A; tw2 13:41 BP 149 / 86; Pulse 109; Resp 19; Pulse Ox 99% on R/A; tw2 09:12 Body Mass Index 21.95 (54.43 kg, 157.48 cm) ss MDM: 09:10 Patient medically screened. [facility] 09:55 Data reviewed: vital signs, nurses notes, lab test result(s), EKG, radiologic studies, [facility] CT scan, plain films. 09/21 09:51 Order name: Basic Metabolic Panel; Complete Time: 11:16 [facility] 09/21 09:51 Order name: CBC with Diff; Complete Time: 11:16 [facility] 09/21 09:51 Order name: LFT's; Complete Time: 11:16 [facility] 09/21 09:51 Order name: Magnesium; Complete Time: 11:16 [facility] 09/21 09:51 Order name: NT PRO-BNP; Complete Time: 11:16 [facility] 09/21 09:51 Order name: PT-INR; Complete Time: 11:16 [facility] 09/21 09:51 Order name: Troponin (emerg Dept Use Only); Complete Time: 11:16 [facility] 09/21 09:51 Order name: XRAY Chest (1 view); Complete Time: 11:16 [facility] 09/21 09:51 Order name: Blood Culture Adult (2) 09/21 09:51 Order name: Urine Culture 09/21 09:51 Order name: Procalcitonin; Complete Time: 11:16 [facility] 09/21 09:56 Order name: Lipase; Complete Time: 11:16 [facility] 09/21 11:41 Order name: Urine Dipstick--Ancillary (enter results); Complete Time: 12:01 09/21 09:51 Order name: EKG; Complete Time: 09:53 [facility] 09/21 09:51 Order name: Cardiac monitoring; Complete Time: 09:57 [facility] 09/21 09:51 Order name: EKG - Nurse/Tech; Complete Time: 10:37 [facility] 09/21 09:51 Order name: IV Saline Lock; Complete Time: 10:37 [facility] 09/21 09:51 Order name: Labs collected and sent; Complete Time: 10:37 [facility] 09/21 09:51 Order name: O2 Per Protocol; Complete Time: 09:57 [facility] 09/21 09:51 Order name: O2 Sat Monitoring; Complete Time: 09:57 [facility] 09/21 09:51 Order name: Urine Dipstick-Ancillary (obtain specimen); Complete Time: 11:45 [facility] 09/21 09:51 Order name: Lumbar Puncture Consent; Complete Time: 10:37 [facility] 09/21 09:51 Order name: Lumbar Puncture Setup; Complete Time: 10:37 [facility] 09/21 09:55 Order name: CT Soft Tissue Neck W/contr; Complete Time: 11:51 [facility] 09/21 11:11 Order name: Head Brain Wo Cont; Complete Time: 11:51 EDMS Administered Medications: 12:00 Drug: Rocephin - (cefTRIAXone) 2 grams {Note: IVP available only from pharmacy.} Route: tw2 IVPB; Infused Over: 5 mins; Site: left antecubital; 12:24 Follow up: Response: No adverse reaction; IV Status: Completed infusion tw2 12:20 Drug: Decadron - Dexamethasone 10 mg Route: IVP; Site: left antecubital; tw2 12:30 Follow up: Response: No adverse reaction tw2 Disposition: 09/21/18 12:[address] [facility]. Diagnosis are Strain of muscle, fascia and tendon at neck level, Cervical disc disorders - C3-4 SEVERE 8MM HERNIATION, CORD FLATENING. - Reason for transfer: Higher level of care. - Accepting physician is to [facility] Dr. Anders. - Condition is Stable. - Problem is new. - Symptoms have improved. Signatures: Dispatcher [employer] EDMS Christian Tinoco MD MD cha Smirch, Shelby, RN RN ss Sofy Butcher RN RN tw2 Corrections: (The following items were deleted from the chart) 11:07 09:53 Head Brain Wo Cont+CT.RAD.BRZ ordered. [facility] EDMT 13:48 12:00 09/21/2018 12:[address] [facility]. Diagnosis is tw2 Strain of muscle, fascia and tendon at neck level; Cervical disc disorders - C3-4 SEVERE 8MM HERNIATION, CORD FLATENING. Reason for transfer: Higher level of care. Accepting physician is to [facility] Dr. Anders. Condition is Stable. Problem is new. Symptoms have improved. sita
[2018-09-21] MEDS ORDERED: DEXAMETHASONE 10 MG/ML VIAL ONE (12:24)
--- NOTE | 2018-09-21 12:39 | EKG ---
Test Date: 2018-09-21 Test Time: 10:03:31 Fixture Maker: FLYNN MEASUREMENT RESULTS: Intervals: Rate: 99 MI: 140 QRSD: 74 QT: 332 QTc: 426 [place]: P: 59 MI: 140 QRS: 18 T: 37 INTERPRETIVE STATEMENTS: Normal sinus rhythm Normal ECG Compared to ECG 04/20/2018 06:56:22 No significant changes Electronically Signed On 09-21-18 12:38:17 CDT by Elijah Alvarado
== END 2018-09-21 13:48 | disposition short-term general hospital (02) ==
LOC: ER 08:55
DX: S16.1XXA Strain of muscle, fascia and tendon at neck level, initial encounter (principal); M50.21 Other cervical disc displacement, high cervical region; M50.81 Other cervical disc disorders, high cervical region; I10 Essential (primary) hypertension; E03.9 Hypothyroidism, unspecified; E78.5 Hyperlipidemia, unspecified; Z88.6 Allergy status to analgesic agent; Z88.0 Allergy status to penicillin; Z88.8 Allergy status to other drugs, medicaments and biological substances
CPT/HCPCS: 96365; 93005; 87040 ×2; 87088; 85025; 87086; 80048; 36415; 83735; 85610; 80076; 81003; 84484; 83690; 84145; 83880; 70450; 70491; 71045; 96375; 99285; Q9967; J1100; J0696

== ENCOUNTER 2019-04-13 04:58 | Emergency (ER) | payer OTHER ==
--- OUTSIDE RECORDS SUMMARY | 2019-04-13 05:01 | XMS REPORT ---
:1940 [facility] Address [address] [place] [address] Dr. Mo [address] [place] [id number] Care Team Providers Name Role Phone MARIANA ALEXANDRE Unavailable Unavailable Problems This patient has no known problems. Allergies, Adverse Reactions, Alerts This patient has no known allergies or adverse reactions. Medications This patient has no known medications. Results Test Description Test Time Test Comments Text Results Atomic Results Result Comments NEEDLE EMG, 2 2018-09-27 INTRAOPERATIVE MONITORING REPORT Patient EXTREMITY 11:13:00 Name: Treasure Mosley [facility] Surgery Date: 09/23/2018 [place] PRO [id number] Monitoring began at 06:52 and ended at 08:54 Surgeon: Aman De La Rosa M.D. Examining Neurologist: Shraddha Hollingsworth MD Monitoring Technologist: VERONICA Santana Procedure: C2-5 Laminectomy Stimulation Parameters: Ulnar nerves individually stimulated at the wrist Rate 4.7Hz, Intensity 35mA, Duration 0.3ms Posterior Tibial nerves individually stimulated at the ankle Rate 4.7Hz, Intensity 70mA, Duration 0.3ms Filters 30-500Hz, Notch Off Motor strip stimulated anterior to C3 and C4 with alternating polarities Intensity 100-500V, Train Rate 4-5, MINDY 2-3ms Filters 30-2KHz, Notch Off Recording Parameters: EP1, EP2, CV, CP3, CP4, CPz, and FPz Free-running EMG of Trapezius (C4) Deltoid (C5-6), Bicep (C5-6) referenced to Tricep (C6-8) and Abductor Digiti Minimi (C8-T1) referenced to Abductor Pollucis Brevis (C8-T1) muscle groups Transcranial electrical Motor Evoked Potentials recorded from the Deltoid referenced to the biceps, Triceps muscles, Abductor Pollicis Brevis referenced to the Abductor Digiti Quinti Minimi muscle groups and the Abductor Hallucis referenced to Abductor Digiti Minimi muscle groups Description: Intraoperative neurophysiological monitoring was performed using a combination of upper and lower extremity somatosensory evoked potentials, transcranial electrical motor evoked potentials, free-running EMG of C4-T1 innervated muscle groups. A real-time connection with the examining neurologist was established and maintained throughout the operative procedure by the monitoring technologist. Upper extremity somatosensory evoked potentials were recorded peripherally at [place] and centrally at the cervical and cortical levels following ulnar nerve stimulation at the wrist. Lower extremity somatosensory evoked potentials were recorded centrally at the cervical and cortical levels following posterior tibial nerve stimulation at the ankle. TceMEPs were recorded peripherally from the upper and lower extremities following alternating polarity motor strip stimulation. Post-induction, post-intubation TceMEP recording responses to motor cortex stimulation were clear and reproducible bilaterally. No significant surgically related changes in amplitude or latency of the somatosensory evoked responses or TceMEPs were noted throughout the surgical procedure. At closing, responses were judged to be essentially unchanged from those of post-positioning baselines. Free-running EMG of C4-T1 innervated muscle groups was monitored continuously throughout the operative procedure with no sustained neurotonic discharges noted. Conclusion: These results suggest the absence of untoward, secondary effects on anterior and posterior column function as a consequence of this surgical procedure. In addition, absence of sustained neurotonic discharges on free-running EMG suggests that the nerve roots monitored remained undisturbed. Shraddha Hollingsworth M.D. M50.10 W/PLT COUNT & AUTO DIFFERENTIAL 2018-09-26 09:10:00 Test Item Value Reference Range Comments WHITE BLOOD CELL COUNT (BEAKER) (test rzpn=900) 13.7 K/ L 3.5-10.5 RED BLOOD CELL COUNT (BEAKER) (test vzpu=830) 3.94 M/ L 3.93-5.22 HEMOGLOBIN (BEAKER) (test fmvn=835) 11.8 GM/DL 11.2-15.7 HEMATOCRIT (BEAKER) (test szna=602) 35.5 % 34.1-44.9 MEAN CORPUSCULAR VOLUME (BEAKER) (test bglo=873) 90.1 fL 79.4-94.8 MEAN CORPUSCULAR HEMOGLOBIN (BEAKER) (test lqjd=780) 29.9 pg 25.6-32.2 MEAN CORPUSCULAR HEMOGLOBIN CONC (BEAKER) (test uqoi=699) 33.2 GM/DL 32.2- 35.5 RED CELL DISTRIBUTION WIDTH (BEAKER) (test bxcb=694) 13.2 % 11.7-14.4 PLATELET COUNT (BEAKER) (test muzl=979) 605 K/CU MM 150-450 MEAN PLATELET VOLUME (BEAKER) (test npps=472) 9.8 fL 9.4-12.3 NUCLEATED RED BLOOD CELLS (BEAKER) (test pkmh=725) 0 /100 WBC 0-0 (CELLAVISION MANUAL DIFF)2018-09-26 09:10:00 Test Item Value Reference Range Comments NEUTROPHILS - REL (CELLAVISION)(BEAKER) (test 70 % eryz=9346) LYMPHOCYTES - REL (CELLAVISION)(BEAKER) (test 13 % irqv=1529) MONOCYTES - REL (CELLAVISION)(BEAKER) (test 13 % eeef=7415) EOSINOPHILS - REL (CELLAVISION)(BEAKER) (test 1 % eyyf=4373) BASOPHILS - REL (CELLAVISION)(BEAKER) (test 3 % sqvy=9647) NEUTROPHILS - ABS (CELLAVISION)(BEAKER) (test 9.59 K/ul 1.56-6.13 hfyl=9973) LYMPHOCYTES - ABS (CELLAVISION)(BEAKER) (test 1.78 K/ul 1.18-3.74 anhx=2399) MONOCYTES - ABS (CELLAVISION)(BEAKER) (test 1.78 K/uL 0.24-0.36 twie=1095) EOSINOPHILS - ABS (CELLAVISION)(BEAKER) (test 0.14 K/uL 0.04-0.36 npvn=6255) BASOPHILS - ABS (CELLAVISION)(BEAKER) (test 0.41 K/uL 0.01-0.08 glqp=8678) TOTAL COUNTED (BEAKER) (test upbx=0857) 100 RBC MORPHOLOGY (BEAKER) (test zsga=277) Normal WBC MORPHOLOGY (BEAKER) (test olig=931) Normal PLT MORPHOLOGY (BEAKER) (test aoxl=461) Normal ARTIFACT (CELLAVISION)(BEAKER) (test rrtb=4945) Present PLATELET CONCENTRATION (CELLAVISION)(BEAKER) (test Increased oymq=2484) Received comment: User comments: Slide comments:COMPREHENSIVE METABOLIC [id number] 07:23:00 Test Item Value Reference Range Comments TOTAL PROTEIN (BEAKER) 6.9 gm/dL 6.0-8.3 (test dsez=987) ALBUMIN (BEAKER) (test 3.5 g/dL 3.5-5.0 lwdc=7442) ALKALINE PHOSPHATASE 53 U/L 40-150 (BEAKER) (test dtyd=525) BILIRUBIN TOTAL (BEAKER) 0.3 mg/dL 0.2-1.2 (test scft=553) SODIUM (BEAKER) (test 136 meq/L 136-145 pbwx=410) POTASSIUM (BEAKER) (test 3.9 meq/L 3.5-5.1 fyvf=068) CHLORIDE (BEAKER) (test 102 meq/L 98-107 icik=925) CO2 (BEAKER) (test 25 meq/L 22-29 twmd=306) BLOOD UREA NITROGEN 15 mg/dL 7-21 (BEAKER) (test qasy=192) CREATININE (BEAKER) (test 0.69 mg/dL 0.57-1.25 ykxo=721) GLUCOSE RANDOM (BEAKER) 84 mg/dL 70-105 (test cxxi=099) CALCIUM (BEAKER) (test 9.5 mg/dL 8.4-10.2 puij=865) AST (SGOT) (BEAKER) (test 16 U/L 5-34 lroc=194) ALT (SGPT) (BEAKER) (test 15 U/L 6-55 ngsi=819) EGFR (BEAKER) (test 82 mL/min/1.73 sq m ESTIMATED GFR IS NOT jjkd=5681) ACCURATE CREATININE CLEARANCE IN PREDICTING GLOMERULAR FILTRATION RATE. ESTIMATED GFR IS NOT APPLICABLE FOR DIALYSIS PATIENTS. CBC W/PLT COUNT & AUTO [id number] 06:35:00 Test Item Value Reference Range Comments WHITE BLOOD CELL COUNT (BEAKER) (test lxew=966) 15.3 K/ L 3.5-10.5 RED BLOOD CELL COUNT (BEAKER) (test zxlj=854) 3.98 M/ L 3.93-5.22 HEMOGLOBIN (BEAKER) (test vycr=459) 12.1 GM/DL 11.2-15.7 HEMATOCRIT (BEAKER) (test iwmk=702) 35.9 % 34.1-44.9 MEAN CORPUSCULAR VOLUME (BEAKER) (test mmll=825) 90.2 fL 79.4-94.8 MEAN CORPUSCULAR HEMOGLOBIN (BEAKER) (test 30.4 pg 25.6-32.2 wtwd=163) MEAN CORPUSCULAR HEMOGLOBIN CONC (BEAKER) (test 33.7 GM/DL 32.2-35.5 ckgk=400) RED CELL DISTRIBUTION WIDTH (BEAKER) (test 13.2 % 11.7-14.4 tzav=496) PLATELET COUNT (BEAKER) (test rdsc=585) 633 K/CU MM 150-450 MEAN PLATELET VOLUME (BEAKER) (test eoom=079) 9.9 fL 9.4-12.3 NUCLEATED RED BLOOD CELLS (BEAKER) (test 0 /100 WBC 0-0 cqsu=265) NEUTROPHILS RELATIVE PERCENT (BEAKER) (test 76 % bycy=566) LYMPHOCYTES RELATIVE PERCENT (BEAKER) (test 14 % psou=927) MONOCYTES RELATIVE PERCENT (BEAKER) (test 9 % eqte=715) EOSINOPHILS RELATIVE PERCENT (BEAKER) (test 0 % wrhe=721) BASOPHILS RELATIVE PERCENT (BEAKER) (test 1 % hidb=133) NEUTROPHILS ABSOLUTE COUNT (BEAKER) (test 11.57 K/ L 1.56-6.13 omhj=727) LYMPHOCYTES ABSOLUTE COUNT (BEAKER) (test 2.15 K/ L 1.18-3.74 jhsb=430) MONOCYTES ABSOLUTE COUNT (BEAKER) (test 1.37 K/ L 0.24-0.36 jkza=798) EOSINOPHILS ABSOLUTE COUNT (BEAKER) (test 0.05 K/ L 0.04-0.36 alyi=149) BASOPHILS ABSOLUTE COUNT (BEAKER) (test 0.08 K/ L 0.01-0.08 exgf=372) IMMATURE GRANULOCYTES-RELATIVE PERCENT (BEAKER) 1 % 0-1 (test yclv=2484) COMPREHENSIVE METABOLIC [id number] 06:30:00 Test Item Value Reference Range Comments TOTAL PROTEIN (BEAKER) 7.1 gm/dL 6.0-8.3 (test rabf=569) ALBUMIN (BEAKER) (test 3.5 g/dL 3.5-5.0 asyh=2358) ALKALINE PHOSPHATASE 56 U/L 40-150 (BEAKER) (test rgli=465) BILIRUBIN TOTAL (BEAKER) 0.3 mg/dL 0.2-1.2 (test mfuc=936) SODIUM (BEAKER) (test 132 meq/L 136-145 awri=928) POTASSIUM (BEAKER) (test 3.9 meq/L 3.5-5.1 bsqb=305) CHLORIDE (BEAKER) (test 99 meq/L 98-107 tiht=499) CO2 (BEAKER) (test 25 meq/L 22-29 ivqc=972) BLOOD UREA NITROGEN 13 mg/dL 7-21 (BEAKER) (test fsao=355) CREATININE (BEAKER) (test 0.65 mg/dL 0.57-1.25 ywlm=179) GLUCOSE RANDOM (BEAKER) 91 mg/dL 70-105 (test qmxw=892) CALCIUM (BEAKER) (test 9.5 mg/dL 8.4-10.2 fhbt=970) AST (SGOT) (BEAKER) (test 19 U/L 5-34 efry=720) ALT (SGPT) (BEAKER) (test 17 U/L 6-55 ydya=189) EGFR (BEAKER) (test 88 mL/min/1.73 sq m ESTIMATED GFR IS NOT esgj=2531) ACCURATE CREATININE CLEARANCE IN PREDICTING GLOMERULAR FILTRATION RATE. ESTIMATED GFR IS NOT APPLICABLE FOR DIALYSIS PATIENTS. RAD, CHEST, 2 [id number] 09:03:00Reason for exam:->leukocytosis, pre- opFINAL REPORT INDICATION: leukocytosis, pre-op COMPARISON: None TECHNIQUE: Frontal and lateral views of the chest. FINDINGS: Lungs and pleura: Clear lungs. No effusion.Heart and mediastinum: Normal heart size. Unremarkable mediastinal contours. A small sliding hiatal hernia is present.Osseous structures: No acute abnormality.Additional findings: None. IMPRESSION: No acute intrathoracic abnormality. Signed: JR Padmini, Reena HENDERSONort Verified Date/Time: 09/24/2018 09:03:59 Reading Location: [facility] Radiology Reading Room CBC W/PLT COUNT & AUTO [id number] 08:33:00 Test Item Value Reference Range Comments WHITE BLOOD CELL COUNT (BEAKER) (test ucwr=371) 20.2 K/ L 3.5-10.5 RED BLOOD CELL COUNT (BEAKER) (test soem=152) 3.97 M/ L 3.93-5.22 HEMOGLOBIN (BEAKER) (test gmrv=833) 11.8 GM/DL 11.2-15.7 HEMATOCRIT (BEAKER) (test hked=742) 37.6 % 34.1-44.9 MEAN CORPUSCULAR VOLUME (BEAKER) (test wrlh=963) 94.7 fL 79.4-94.8 MEAN CORPUSCULAR HEMOGLOBIN (BEAKER) (test 29.7 pg 25.6-32.2 ihxi=883) MEAN CORPUSCULAR HEMOGLOBIN CONC (BEAKER) (test 31.4 GM/DL 32.2-35.5 rpep=773) RED CELL DISTRIBUTION WIDTH (BEAKER) (test 13.2 % 11.7-14.4 jzwu=050) PLATELET COUNT (BEAKER) (test sufn=332) 580 K/CU MM 150-450 MEAN PLATELET VOLUME (BEAKER) (test hein=866) 10.0 fL 9.4-12.3 NUCLEATED RED BLOOD CELLS (BEAKER) (test 0 /100 WBC 0-0 ouer=084) (CELLAVISION MANUAL DIFF)2018-09-24 08:33:00 Test Item Value Reference Range Comments NEUTROPHILS - REL (CELLAVISION)(BEAKER) (test 75 % zqfz=9184) LYMPHOCYTES - REL (CELLAVISION)(BEAKER) (test 15 % gjue=1222) MONOCYTES - REL (CELLAVISION)(BEAKER) (test 6 % gpfu=2363) EOSINOPHILS - REL (CELLAVISION)(BEAKER) (test 2 % olzr=5391) BASOPHILS - REL (CELLAVISION)(BEAKER) (test 1 % tcja=3671) ATYPICAL LYMPHOCYTES - REL (CELLAVISION)(BEAKER) 1 % 0-0 (test xacj=5041) NEUTROPHILS - ABS (CELLAVISION)(BEAKER) (test 15.15 K/ul 1.56-6.13 sawi=5879) LYMPHOCYTES - ABS (CELLAVISION)(BEAKER) (test 3.03 K/ul 1.18-3.74 vjjb=5399) MONOCYTES - ABS (CELLAVISION)(BEAKER) (test 1.21 K/uL 0.24-0.36 oknm=8192) EOSINOPHILS - ABS (CELLAVISION)(BEAKER) (test 0.40 K/uL 0.04-0.36 yjdm=0127) BASOPHILS - ABS (CELLAVISION)(BEAKER) (test 0.20 K/uL 0.01-0.08 tafx=3094) ATYPICAL LYMPHOCYTES - ABS (CELLAVISION)(BEAKER) 0.20 K/uL 0.00-0.00 (test wxdt=6247) TOTAL COUNTED (BEAKER) (test fgif=1433) 100 RBC MORPHOLOGY (BEAKER) (test zzkx=273) Normal WBC MORPHOLOGY (BEAKER) (test jsxu=514) Normal PLT MORPHOLOGY (BEAKER) (test dotb=496) Normal ARTIFACT (CELLAVISION)(BEAKER) (test yqly=8816) Present PLATELET CONCENTRATION (CELLAVISION)(BEAKER) Increased (test mznn=5645) Received comment: User comments: Slide comments:COMPREHENSIVE METABOLIC [id number] 06:32:00 Test Item Value Reference Range Comments TOTAL PROTEIN (BEAKER) 7.5 gm/dL 6.0-8.3 (test unwx=032) ALBUMIN (BEAKER) (test 3.6 g/dL 3.5-5.0 vfkr=9406) ALKALINE PHOSPHATASE 59 U/L 40-150 (BEAKER) (test qvxo=977) BILIRUBIN TOTAL (BEAKER) 0.4 mg/dL 0.2-1.2 (test ydcu=890) SODIUM (BEAKER) (test 133 meq/L 136-145 wooi=824) POTASSIUM (BEAKER) (test 4.1 meq/L 3.5-5.1 hrle=808) CHLORIDE (BEAKER) (test 102 meq/L 98-107 dddz=107) CO2 (BEAKER) (test 23 meq/L 22-29 jtzf=528) BLOOD UREA NITROGEN 15 mg/dL 7-21 (BEAKER) (test irtc=555) CREATININE (BEAKER) (test 0.69 mg/dL 0.57-1.25 lskp=072) GLUCOSE RANDOM (BEAKER) 99 mg/dL 70-105 (test pqgs=380) CALCIUM (BEAKER) (test 9.3 mg/dL 8.4-10.2 rssv=848) AST (SGOT) (BEAKER) (test 24 U/L 5-34 fypj=778) ALT (SGPT) (BEAKER) (test 19 U/L 6-55 eaom=065) EGFR (BEAKER) (test 82 mL/min/1.73 sq m ESTIMATED GFR IS NOT jutl=5815) ACCURATE CREATININE CLEARANCE IN PREDICTING GLOMERULAR FILTRATION RATE. ESTIMATED GFR IS NOT APPLICABLE FOR DIALYSIS PATIENTS. RAD, SPINE, CERVICAL, 1 [id number] 08:12:00Reason for exam:->painFINAL REPORT RAD, SPINE, CERVICAL, 1 VIEW CLINICAL INDICATION: pain COMPARISON: None IMPRESSION: A single lateral view of the cervical spine is obtained intraoperatively. Probeis oriented at the facet of C3. Results were communicated to Dr. De La Rosa, who concurred with the above findings. Signed: JR [place] Robert MDReport Verified Date/Time: 09/23/2018 08:12: 49 ReadingLocation: [facility] Radiology Reading Room COMPREHENSIVE METABOLIC [id number] 06:01:00 Test Item Value Reference Range Comments TOTAL PROTEIN (BEAKER) 7.3 gm/dL 6.0-8.3 (test ckza=600) ALBUMIN (BEAKER) (test 3.7 g/dL 3.5-5.0 kefg=2050) ALKALINE PHOSPHATASE 48 U/L 40-150 (BEAKER) (test cviz=392) BILIRUBIN TOTAL (BEAKER) 0.3 mg/dL 0.2-1.2 (test mdxw=346) SODIUM (BEAKER) (test 140 meq/L 136-145 nnoo=958) POTASSIUM (BEAKER) (test 4.4 meq/L 3.5-5.1 guhs=191) CHLORIDE (BEAKER) (test 107 meq/L 98-107 wyye=143) CO2 (BEAKER) (test 24 meq/L 22-29 mwvk=701) BLOOD UREA NITROGEN 24 mg/dL 7-21 (BEAKER) (test gddi=989) CREATININE (BEAKER) (test 0.81 mg/dL 0.57-1.25 nvsd=510) GLUCOSE RANDOM (BEAKER) 86 mg/dL 70-105 (test lemz=459) CALCIUM (BEAKER) (test 9.7 mg/dL 8.4-10.2 holq=980) AST (SGOT) (BEAKER) (test 18 U/L 5-34 giqw=640) ALT (SGPT) (BEAKER) (test 12 U/L 6-55 bvdq=195) EGFR (BEAKER) (test 69 mL/min/1.73 sq m ESTIMATED GFR IS NOT ffji=6265) ACCURATE CREATININE CLEARANCE IN PREDICTING GLOMERULAR FILTRATION RATE. ESTIMATED GFR IS NOT APPLICABLE FOR DIALYSIS PATIENTS. Specimen slightly lipemicCBC W/PLT COUNT & AUTO [id number] 05:28 :00 Test Item Value Reference Range Comments WHITE BLOOD CELL COUNT (BEAKER) (test bqwg=852) 11.0 K/ L 3.5-10.5 RED BLOOD CELL COUNT (BEAKER) (test cztc=779) 4.06 M/ L 3.93-5.22 HEMOGLOBIN (BEAKER) (test ugeo=455) 12.1 GM/DL 11.2-15.7 HEMATOCRIT (BEAKER) (test jbjq=058) 38.2 % 34.1-44.9 MEAN CORPUSCULAR VOLUME (BEAKER) (test zoym=800) 94.1 fL 79.4-94.8 MEAN CORPUSCULAR HEMOGLOBIN (BEAKER) (test 29.8 pg 25.6-32.2 lxon=139) MEAN CORPUSCULAR HEMOGLOBIN CONC (BEAKER) (test 31.7 GM/DL 32.2-35.5 tfig=872) RED CELL DISTRIBUTION WIDTH (BEAKER) (test 13.4 % 11.7-14.4 lbuv=000) PLATELET COUNT (BEAKER) (test salc=111) 562 K/CU MM 150-450 MEAN PLATELET VOLUME (BEAKER) (test zwpy=570) 10.2 fL 9.4-12.3 NUCLEATED RED BLOOD CELLS (BEAKER) (test 0 /100 WBC 0-0 hamb=368) NEUTROPHILS RELATIVE PERCENT (BEAKER) (test 61 % nfus=520) LYMPHOCYTES RELATIVE PERCENT (BEAKER) (test 26 % meip=965) MONOCYTES RELATIVE PERCENT (BEAKER) (test 10 % keji=631) EOSINOPHILS RELATIVE PERCENT (BEAKER) (test 2 % tart=969) BASOPHILS RELATIVE PERCENT (BEAKER) (test 1 % dkng=564) NEUTROPHILS ABSOLUTE COUNT (BEAKER) (test 6.67 K/ L 1.56-6.13 pvsf=842) LYMPHOCYTES ABSOLUTE COUNT (BEAKER) (test 2.80 K/ L 1.18-3.74 xmjk=830) MONOCYTES ABSOLUTE COUNT (BEAKER) (test 1.13 K/ L 0.24-0.36 ahbv=628) EOSINOPHILS ABSOLUTE COUNT (BEAKER) (test 0.20 K/ L 0.04-0.36 sbvm=024) BASOPHILS ABSOLUTE COUNT (BEAKER) (test 0.11 K/ L 0.01-0.08 tsua=150) IMMATURE GRANULOCYTES-RELATIVE PERCENT (BEAKER) 1 % 0-1 (test avsp=0408) URINALYSIS WITH MICROSCOPIC IF [id number] 18:11:00 Test Item Value Reference Range Comments COLOR (BEAKER) (test rpkt=532) Light Yellow CLARITY (BEAKER) (test ncdk=344) Clear SPECIFIC GRAVITY UA (BEAKER) (test hbuq=984) 1.007 1.001-1.035 PH UA (BEAKER) (test zlyo=506) 5.5 5.0-8.0 PROTEIN UA (BEAKER) (test mozn=414) Negative Negative GLUCOSE UA (BEAKER) (test npvs=694) Negative Negative KETONES UA (BEAKER) (test jjsa=929) Negative Negative BILIRUBIN UA (BEAKER) (test bvjb=013) Negative Negative BLOOD UA (BEAKER) (test zvtm=561) Negative Negative NITRITE UA (BEAKER) (test ubmr=744) Negative Negative LEUKOCYTE ESTERASE UA (BEAKER) (test kqyz=000) Negative Negative UROBILINOGEN UA (BEAKER) (test zvtd=654) 0.2 mg/dL 0.2-1.0 SOURCE(BEAKER) (test egce=6070) T4, [id number] 12:26:00 Test Item Value Reference Range Comments FREE T4 (BEAKER) (test vrbm=327) 1.14 ng/dL 0.70-1.48 HEMOGLOBIN [id number] 09:48:00 Test Item Value Reference Range Comments HEMOGLOBIN A1C (BEAKER) (test rogp=171) 5.4 % 4.3-6.1 TSH/FREE T4 IF [id number] 07:08:00 Test Item Value Reference Range Comments THYROID STIMULATING HORMONE (BEAKER) (test 0.21 uIU/mL 0.35-4.94 piec=191) LIPID [id number] 06:23:00 Test Item Value Reference Range Comments TRIGLYCERIDES (BEAKER) (test csrv=003) 66 mg/dL CHOLESTEROL (BEAKER) (test bruw=883) 157 mg/dL HDL CHOLESTEROL (BEAKER) (test idvc=961) 65 mg/dL LDL CHOLESTEROL CALCULATED (BEAKER) (test 79 mg/dL jcbw=049) Triglyceride Reference Range: Low Risk <150 Borderline 150- 199 High Risk 200-499 Very High Risk >=500Cholesterol Reference Range: Low Risk <200 Borderline 200-239 High Risk > 240HDL Cholesterol Reference Range: Low Risk >=60 High Risk <40LDL Cholesterol Reference Range: Optimal <100 Near Optimal 100-129 Borderline 130-159 High 160-189 Very High >=190COMPREHENSIVE METABOLIC [id number] 06:23:00 Test Item Value Reference Range Comments TOTAL PROTEIN (BEAKER) 7.3 gm/dL 6.0-8.3 (test khra=830) ALBUMIN (BEAKER) (test 3.7 g/dL 3.5-5.0 ujuo=9735) ALKALINE PHOSPHATASE 51 U/L 40-150 (BEAKER) (test ineu=797) BILIRUBIN TOTAL (BEAKER) 0.3 mg/dL 0.2-1.2 (test ubst=513) SODIUM (BEAKER) (test 139 meq/L 136-145 ckdb=938) POTASSIUM (BEAKER) (test 4.2 meq/L 3.5-5.1 drhe=576) CHLORIDE (BEAKER) (test 104 meq/L 98-107 jtjh=689) CO2 (BEAKER) (test 25 meq/L 22-29 ezgw=466) BLOOD UREA NITROGEN 32 mg/dL 7-21 (BEAKER) (test oihe=523) CREATININE (BEAKER) (test 0.82 mg/dL 0.57-1.25 ynxr=477) GLUCOSE RANDOM (BEAKER) 79 mg/dL 70-105 (test kgnc=504) CALCIUM (BEAKER) (test 9.7 mg/dL 8.4-10.2 alrx=823) AST (SGOT) (BEAKER) (test 16 U/L 5-34 ucta=378) ALT (SGPT) (BEAKER) (test 11 U/L 6-55 jxig=896) EGFR (BEAKER) (test 68 mL/min/1.73 sq m ESTIMATED GFR IS NOT zkqy=3533) ACCURATE CREATININE CLEARANCE IN PREDICTING GLOMERULAR FILTRATION RATE. ESTIMATED GFR IS NOT APPLICABLE FOR DIALYSIS PATIENTS. CBC W/PLT COUNT & AUTO [id number] 06:17:00 Test Item Value Reference Range Comments WHITE BLOOD CELL COUNT (BEAKER) (test vbzc=110) 14.8 K/ L 3.5-10.5 RED BLOOD CELL COUNT (BEAKER) (test vrwh=590) 3.93 M/ L 3.93-5.22 HEMOGLOBIN (BEAKER) (test qank=596) 11.6 GM/DL 11.2-15.7 HEMATOCRIT (BEAKER) (test pnga=745) 37.1 % 34.1-44.9 MEAN CORPUSCULAR VOLUME (BEAKER) (test ncqt=370) 94.4 fL 79.4-94.8 MEAN CORPUSCULAR HEMOGLOBIN (BEAKER) (test 29.5 pg 25.6-32.2 pepd=526) MEAN CORPUSCULAR HEMOGLOBIN CONC (BEAKER) (test 31.3 GM/DL 32.2-35.5 dfmj=007) RED CELL DISTRIBUTION WIDTH (BEAKER) (test 13.4 % 11.7-14.4 drdh=055) PLATELET COUNT (BEAKER) (test gdjx=066) 543 K/CU MM 150-450 MEAN PLATELET VOLUME (BEAKER) (test ddss=309) 10.5 fL 9.4-12.3 NUCLEATED RED BLOOD CELLS (BEAKER) (test 0 /100 WBC 0-0 fduu=592) NEUTROPHILS RELATIVE PERCENT (BEAKER) (test 74 % jkpj=198) LYMPHOCYTES RELATIVE PERCENT (BEAKER) (test 15 % unhu=039) MONOCYTES RELATIVE PERCENT (BEAKER) (test 10 % zrqr=663) EOSINOPHILS RELATIVE PERCENT (BEAKER) (test 0 % wbjr=484) BASOPHILS RELATIVE PERCENT (BEAKER) (test 1 % bjtu=424) NEUTROPHILS ABSOLUTE COUNT (BEAKER) (test 10.94 K/ L 1.56-6.13 pqhp=452) LYMPHOCYTES ABSOLUTE COUNT (BEAKER) (test 2.15 K/ L 1.18-3.74 olnp=908) MONOCYTES ABSOLUTE COUNT (BEAKER) (test 1.43 K/ L 0.24-0.36 awjg=599) EOSINOPHILS ABSOLUTE COUNT (BEAKER) (test 0.04 K/ L 0.04-0.36 vuww=985) BASOPHILS ABSOLUTE COUNT (BEAKER) (test 0.08 K/ L 0.01-0.08 kvfp=024) IMMATURE GRANULOCYTES-RELATIVE PERCENT (BEAKER) 1 % 0-1 (test quck=7375) MR, SPINE, CERVICAL, WITHOUT [id number] 19:10:00FINAL REPORT MR, SPINE, CERVICAL, WITHOUT CONTRAST INDICATION: cervical disc herniation TECHNIQUE: Multiplanar, multisequence MR imaging of the cervical spine was performed without intravenous contrast. COMPARISON: None. FINDINGS: Diffuse straightening of the cervical spine. Retrolisthesis of C4 on C5 and C3 on C4. Multilevel T1, T2 hyperintense Modic type II chronic fatty degenerative endplate change. Vertebral body height is maintained.Significant disc space narrowing at essentially every cervical level. Increased cord signal at C2-C3, C3-C4 and C4-C5 as per below. No acutefindings within the paraspinal soft tissues. Findings by level:C2/C3: Disc bulge with anterior osteophyte complex. There is a superimposed disc extrusion with cranial and caudal migration of disc material measuring 7 x 6 x 10 mm. This indents and deforms the ventral cervical cord with effacement of the ventral and dorsal CSF space, severe canal narrowing and mild T2 hyperintensity of the cord, concerning for slight edema versus myelomalacia. Ligamentum flavum thickening posteriorly is also noted. Nosignificant foraminal narrowing C3/C4: Disc bulge with anterior osteophyte component. Posteriorly, there is a superimposed central and left paracentral disc extrusion measuring approximately 7 x 6 x 10mm. In combination with ligamentum flavum thickening there is severe canal stenosis with flattening of the cervical cord and slight T2 hyperintense signal abnormality with cortical volume loss compatible with myelomalacia. Moderate/severe right and severe left- sided foraminal narrowing. C4/C5: Symmetric disc bulge with tiny superimposed disc osteophyte complex. There is a superimposed central disc extrusion with caudal migration of disc material. Effacement of the ventral and dorsal CSF space with severe canal narrowing. Ligamentum flavum thickening contributes to canal narrowing posteriorly. Severe bilateral foraminal narrowing. C5/C6: Posterior disc osteophyte complex and bilateral facet arthropathy and hypertrophy, left greater than right. Severe left and moderate right-sided foraminal narrowing. Mild/moderate spinal canal narrowing. C6/C7: Posterior disc osteophyte complex and bilateral facet arthropathy and hypertrophy. Mild/ moderate bilateral foraminal narrowing C7/T1: No significant spinal canal or foraminal narrowing Paraspinal soft tissues are unremarkable. IMPRESSION: Multilevel severe/critical canal stenosis including C2-C3, C3-C4, and, to a lesser degree, C4-C5. There is abnormal cord signal at these levels with presumed cord volume loss (although some minimal degree of cord edema cannot be excluded. Large disc extrusions at C2-C3 and C3-C4 contribute to narrowing anteriorly. There is ligament flavum thickening at the aforementioned levels which contributes to canal narrowingposteriorly. Signed: Isa Mcdonnell MDReport Verified Date/Time: 09/21/2018 19:10:24 Reading Location: [facility] Radiology Reading Room Electronically signed by: ISA MCDONNELL MD on09/21/2018 07:10 [id number] 17:51:00 Test Item Value Reference Range Comments PHOSPHORUS (BEAKER) (test gibw=109) 3.6 mg/dL 2.3-4.7 [id number] 17:51:00 Test Item Value Reference Range Comments MAGNESIUM (BEAKER) (test fgzp=289) 2.1 mg/dL 1.6-2.6 BASIC METABOLIC [id number] 17:51:00 Test Item Value Reference Range Comments SODIUM (BEAKER) (test 137 meq/L 136-145 uxth=806) POTASSIUM (BEAKER) (test 4.6 meq/L 3.5-5.1 vugd=243) CHLORIDE (BEAKER) (test 103 meq/L 98-107 cloz=556) CO2 (BEAKER) (test 20 meq/L 22-29 vbtn=635) BLOOD UREA NITROGEN 20 mg/dL 7-21 (BEAKER) (test bahp=870) CREATININE (BEAKER) (test 0.84 mg/dL 0.57-1.25 wosr=906) GLUCOSE RANDOM (BEAKER) 120 mg/dL 70-105 (test odvf=806) CALCIUM (BEAKER) (test 10.1 mg/dL 8.4-10.2 qkzs=622) EGFR (BEAKER) (test 66 mL/min/1.73 sq m ESTIMATED GFR IS NOT amlu=7546) ACCURATE CREATININE CLEARANCE IN PREDICTING GLOMERULAR FILTRATION RATE. ESTIMATED GFR IS NOT APPLICABLE FOR DIALYSIS PATIENTS. [id number] 17:44:00 Test Item Value Reference Range Comments PROTIME (BEAKER) (test lzyq=197) 13.7 seconds 11.7-14.7 INR (BEAKER) (test wymg=769) 1.1 <=5.9 PARTIAL THROMBOPLASTIN TIME (BEAKER) (test 37.7 seconds 22.5-36.0 rvjp=496) RECOMMENDED COUMADIN/WARFARIN INR THERAPY RANGESSTANDARD DOSE: 2.0 - 3.0 Includes: PROPHYLAXIS forvenous thrombosis, systemic embolization; TREATMENT for venous thrombosis and/or pulmonary embolus.HIGH RISK: Target INR is 2.5-3.5 for patients with mechanical heart valves.CBC W/PLT COUNT & AUTO [id number] 17:30:00 Test Item Value Reference Range Comments WHITE BLOOD CELL COUNT (BEAKER) (test pypx=871) 17.0 K/ L 3.5-10.5 RED BLOOD CELL COUNT (BEAKER) (test bxnt=885) 4.30 M/ L 3.93-5.22 HEMOGLOBIN (BEAKER) (test oanr=179) 12.8 GM/DL 11.2-15.7 HEMATOCRIT (BEAKER) (test ldiq=414) 40.3 % 34.1-44.9 MEAN CORPUSCULAR VOLUME (BEAKER) (test xyvh=998) 93.7 fL 79.4-94.8 MEAN CORPUSCULAR HEMOGLOBIN (BEAKER) (test 29.8 pg 25.6-32.2 brok=937) MEAN CORPUSCULAR HEMOGLOBIN CONC (BEAKER) (test 31.8 GM/DL 32.2-35.5 xjlc=976) RED CELL DISTRIBUTION WIDTH (BEAKER) (test 13.4 % 11.7-14.4 xztl=008) PLATELET COUNT (BEAKER) (test lkob=792) 553 K/CU MM 150-450 MEAN PLATELET VOLUME (BEAKER) (test eplq=807) 10.2 fL 9.4-12.3 NUCLEATED RED BLOOD CELLS (BEAKER) (test 0 /100 WBC 0-0 cbdc=868) NEUTROPHILS RELATIVE PERCENT (BEAKER) (test 92 % aplw=468) LYMPHOCYTES RELATIVE PERCENT (BEAKER) (test 5 % jkmm=651) MONOCYTES RELATIVE PERCENT (BEAKER) (test 1 % mgkm=865) EOSINOPHILS RELATIVE PERCENT (BEAKER) (test 0 % pkgx=689) BASOPHILS RELATIVE PERCENT (BEAKER) (test 0 % utow=495) NEUTROPHILS ABSOLUTE COUNT (BEAKER) (test 15.70 K/ L 1.56-6.13 smoh=668) LYMPHOCYTES ABSOLUTE COUNT (BEAKER) (test 0.86 K/ L 1.18-3.74 wobj=541) MONOCYTES ABSOLUTE COUNT (BEAKER) (test 0.23 K/ L 0.24-0.36 koqy=087) EOSINOPHILS ABSOLUTE COUNT (BEAKER) (test 0.00 K/ L 0.04-0.36 hlaa=512) BASOPHILS ABSOLUTE COUNT (BEAKER) (test 0.05 K/ L 0.01-0.08 ughu=384) IMMATURE GRANULOCYTES-RELATIVE PERCENT (BEAKER) 1 % 0-1 (test emfn=6705)
[2019-04-13] MEDS ORDERED: NA CHLORIDE 0.9% 0 ML ONE (05:31)
[2019-04-13] MEDS ORDERED: ONDANSETRON 4 MG/2 ML VIAL ONE ×2 (05:31→05:33)
[2019-04-13] MEDS ORDERED: NA CHLORIDE 0.9% 1,000 ML ONE (05:33)
[2019-04-13 05:46] LABS: Absolute Lymphocytes (CBC) 1.4 K/uL (0.7-4.9); Basophils % 0.3 % (0-1.3); Hematocrit 38.9 % (36.0-45.0); Lymphocytes % 9.5 % (15.3-44.8); RBC Red Blood Cell Count 4.25 M/uL (3.86-4.86)
[2019-04-13] MEDS ORDERED: DICYCLOMINE HCL 10 MG CAP ONE ×2 (05:48→05:50)
[2019-04-13 06:17] LABS: Albumin 3.4 g/dL (3.4-5.0); Bilirubin Direct 0.2 mg/dL (0-0.2); Bilirubin Total 0.5 mg/dL (0.2-1.0); Potassium 3.3 mmol/L (3.5-5.1); Protein, Total 7.3 g/dL (6.4-8.2)
--- NOTE | 2019-04-13 06:48 | ER ---
Nurse's Notes [facility] Name: Treasure Mosley Age: 78 yrs Sex: Female : 1940 Arrival Date: 04/13/2019 Time: 05:04 Bed 5 Private MD: Diagnosis: Other viral enteritis;Hypokalemia;Dehydration Presentation: 04/13 05:17 Presenting complaint: Patient states: Having diarrhea since yesterday. Pt also C/O ao abdominal pain and nausea. Transition of care: patient was not received from another setting of care. Onset of symptoms is unknown. Risk Assessment: Do you want to hurt yourself or someone else? Patient reports no desire to harm self or others. Initial Sepsis Screen: Does the patient meet any 2 criteria? No. Patient's initial sepsis screen is negative. Does the patient have a suspected source of infection? No. Patient's initial sepsis screen is negative. Care prior to arrival: None. 05:17 Method Of Arrival: Ambulatory ao 05:17 Acuity: CARLOS 3 ao Historical: - Allergies: 05:19 Aspirin; ao 05:19 PENICILLINS; ao 05:19 steroids; ao - Home Meds: 05:19 fenofibrate 145 MG Oral 1 tab once daily [Active]; folic acid 1 mg Oral tab 1 tab once ao daily [Active]; lisinopril 10 mg Oral tab 1 tab once daily [Active]; Timolol Maleate Opht 1 drop [Active]; Synthroid 100 mcg Oral tab [Active]; - PMHx: 05:19 Glaucoma; Hyperlipidemia; Hypertension; Hypothyroidism; ao - PSHx: 05:19 None; ao - Immunization history:: Adult Immunizations up to date. - Social history:: Smoking status: Patient/guardian denies using tobacco, Patient/guardian denies using alcohol, street drugs, IV drugs. - Ebola Screening: : Patient negative for fever greater than or equal to 101.5 degrees Fahrenheit, and additional compatible Ebola Virus Disease symptoms Patient denies exposure to infectious person Patient denies travel to an Ebola-affected area in the 21 days before illness onset. Screenin:20 Abuse screen: Denies threats or abuse. Denies injuries from another. Nutritional ao screening: No deficits noted. Tuberculosis screening: No symptoms or risk factors identified. Fall Risk None identified. Assessment: 05:21 General: Appears in no apparent distress. comfortable, Behavior is calm, cooperative, ao appropriate for age. Pain: Complains of pain in abdomen Pain does not radiate. Pain currently is 8 out of 10 on a pain scale. Neuro: Level of Consciousness is awake, alert, obeys commands, Oriented to person, place, time, situation, Appropriate for age Moves all extremities. Full function Speech is normal, Facial symmetry appears normal. Cardiovascular: Denies chest pain, lightheadedness, shortness of breath. Respiratory: Airway is patent Respiratory effort is even, unlabored, Respiratory pattern is regular, symmetrical. GI: Abdomen is distended, Reports lower abdominal pain, diarrhea, nausea, Pain is 8 out of 10 on a pain scale. : No signs and/or symptoms were reported regarding the genitourinary system. EENT: No signs and/or symptoms were reported regarding the EENT system. Derm: No deficits noted. No signs and/or symptoms reported regarding the dermatologic system. Musculoskeletal: No signs and/or symptoms reported regarding the musculoskeletal system. 06:46 Reassessment: Patient appears in no apparent distress at this time. Patient is alert, ao oriented x 3, equal unlabored respirations, skin warm/dry/pink. Waiting on dispo orders. 07:00 Reassessment: Patient appears in no apparent distress at this time. DC instructions ao given to patient and spouse. Pt agree with the POC and to follow up with PCP. Patient had no questions at this time. Vital Signs: 05:19 BP 127 / 66; Pulse 94; Resp 18; Temp 98.4(O); Pulse Ox 94% on R/A; Weight 61.69 kg; ao Height 5 ft. 3 in. (160.02 cm); Pain 8/10; 06:46 BP 122 / 52; Pulse 93; Resp 18; Pulse Ox 98% on R/A; Pain 0/10; ao 05:19 Body Mass Index 24.09 (61.69 kg, 160.02 cm) ao ED Course: 05:04 Patient arrived in ED. jg7 05:16 Pérez Taylor MD is Attending Physician. tw4 05:17 Collin Chavez, RN is Primary Nurse. ao 05:18 Triage completed. ao 05:20 Arm band placed on right wrist. Patient placed in an exam room, on a stretcher, on ao pulse oximetry, Patient notified of wait time. 05:22 Patient has correct armband on for positive identification. Pulse ox on. NIBP on. ao 06:48 No provider procedures requiring assistance completed. IV discontinued, intact, ao bleeding controlled, No redness/swelling at site. Pressure dressing applied. Administered Medications: 05:36 Drug: NS 0.9% 1000 ml Route: IV; Rate: 1 bolus; Site: right antecubital; jb4 06:48 Follow up: IV Status: Completed infusion; IV Intake: 1000ml ao 05:36 Drug: Zofran 4 mg Route: IVP; Site: right antecubital; jb4 06:47 Follow up: Response: No adverse reaction ao 05:50 Drug: Bentyl 20 mg Route: PO; jb4 06:47 Follow up: Response: No adverse reaction ao 06:59 Drug: Potassium Effervescent Tablet 50 mEq Route: PO; ao 06:59 Follow up: Response: No adverse reaction ao Intake: 06:48 IV: 1000ml; Total: 1000ml. ao Outcome: 06:47 Discharge ordered by twGeorgina 06:48 Discharged to home ambulatory. ao 06:48 Condition: stable 06:48 Discharge instructions given to patient, Instructed on discharge instructions, follow up and referral plans. Demonstrated understanding of instructions, follow-up care, medications. 07:01 Patient left the ED. ao Signatures: Collin Chavez RN RN Myles Villalba RN RN jb4 Pérez Taylor MD MD tw4 Grace Tijerina jg7
--- NOTE | 2019-04-13 06:48 | EDPHYS ---
Physician Documentation [facility] Name: Treasure Mosley Age: 78 yrs Sex: Female : 1940 Arrival Date: 04/13/2019 Time: 05:04 Bed 5 Private MD: ED Physician Pérez Taylor HPI: 04/13 05:57 This 78 yrs old Female presents to ER via Ambulatory with complaints of tw4 Diarrhea. 05:57 The patient presents to the emergency department with diarrhea. Onset: The tw4 symptoms/episode began/occurred today. Possible causes: unknown. The symptoms are aggravated by nothing. The symptoms are alleviated by nothing. Severity of symptoms: At their worst the symptoms were moderate in the emergency department the symptoms are unchanged. The patient has not experienced similar symptoms in the past. Historical: - Allergies: 05:19 Aspirin; ao 05:19 PENICILLINS; ao 05:19 steroids; ao - Home Meds: 05:19 fenofibrate 145 MG Oral 1 tab once daily [Active]; folic acid 1 mg Oral tab 1 tab once ao daily [Active]; lisinopril 10 mg Oral tab 1 tab once daily [Active]; Timolol Maleate Opht 1 drop [Active]; Synthroid 100 mcg Oral tab [Active]; - PMHx: 05:19 Glaucoma; Hyperlipidemia; Hypertension; Hypothyroidism; ao - PSHx: 05:19 None; ao - Immunization history:: Adult Immunizations up to date. - Social history:: Smoking status: Patient/guardian denies using tobacco, Patient/guardian denies using alcohol, street drugs, IV drugs. - Ebola Screening: : Patient negative for fever greater than or equal to 101.5 degrees Fahrenheit, and additional compatible Ebola Virus Disease symptoms Patient denies exposure to infectious person Patient denies travel to an Ebola-affected area in the 21 days before illness onset. ROS: 05:57 Constitutional: Negative for fever, chills, and weight loss, Eyes: Negative for injury, tw4 pain, redness, and discharge, Cardiovascular: Negative for chest pain, palpitations, and edema, Respiratory: Negative for shortness of breath, cough, wheezing, and pleuritic chest pain. 05:57 Back: Negative for injury and pain, MS/Extremity: Negative for injury and deformity, Skin: Negative for injury, rash, and discoloration, Neuro: Negative for headache, weakness, numbness, tingling, and seizure. 05:57 Abdomen/GI: Positive for nausea and vomiting, nausea, vomiting, and diarrhea, nausea, vomiting, diarrhea, abdominal cramps, Negative for black/tarry stool, rectal pain, rectal bleeding. Exam: 05:57 Constitutional: This is a well developed, well nourished patient who is awake, alert, tw4 and in no acute distress. Head/Face: Normocephalic, atraumatic. Cardiovascular: Regular rate and rhythm with a normal S1 and S2. No gallops, murmurs, or rubs. Normal PMI, no JVD. No pulse deficits. Respiratory: Lungs have equal breath sounds bilaterally, clear to auscultation and percussion. No rales, rhonchi or wheezes noted. No increased work of breathing, no retractions or nasal flaring. Abdomen/GI: Soft, non-tender, with normal bowel sounds. No distension or tympany. No guarding or rebound. No evidence of tenderness throughout. Back: No spinal tenderness. No costovertebral tenderness. Full range of motion. MS/ Extremity: Pulses equal, no cyanosis. Neurovascular intact. Full, normal range of motion. Neuro: Awake and alert, GCS 15, oriented to person, place, time, and situation. Cranial nerves II-XII grossly intact. Motor strength 5/5 in all extremities. Sensory grossly intact. Cerebellar exam normal. Normal gait. Vital Signs: 05:19 BP 127 / 66; Pulse 94; Resp 18; Temp 98.4(O); Pulse Ox 94% on R/A; Weight 61.69 kg; ao Height 5 ft. 3 in. (160.02 cm); Pain 8/10; 06:46 BP 122 / 52; Pulse 93; Resp 18; Pulse Ox 98% on R/A; Pain 0/10; ao 05:19 Body Mass Index 24.09 (61.69 kg, 160.02 cm) ao MDM: 05:16 Patient medically screened. tw04/13 05:17 Order name: Basic Metabolic Panel; Complete Time: 06:45 tw4 12 06:46 Interpretation: Normal except: NA 135; GLUC 127; BUN 21; GFR 65; K 3.3. tw4 04/13 05:17 Order name: CBC with Diff; Complete Time: 06:45 tw4 04/13 06:45 Interpretation: Normal except: WBC 14.3; PLT 421; LYM% 9.5; ALEX% 82.6; NEUT A 11.8. tw4 04/13 05:17 Order name: Creatinine for Radiology; Complete Time: 06:45 tw4 04/13 06:46 Interpretation: Within normal limits: CRE 0.86. 4 04/13 05:17 Order name: Hepatic Function; Complete Time: 06:45 tw4 04/13 06:46 Interpretation: Normal except: GLOB 3.9; A/G 0.9. 4 04/13 05:17 Order name: Lipase; Complete Time: 06:45 tw4 04/13 06:46 Interpretation: Within normal limits: LIP 87. 4 04/13 05:17 Order name: IV Saline Lock; Complete Time: 05:22 tw4 04/13 05:17 Order name: Labs collected and sent; Complete Time: 05:22 tw4 Administered Medications: 05:36 Drug: NS 0.9% 1000 ml Route: IV; Rate: 1 bolus; Site: right antecubital; jb4 06:48 Follow up: IV Status: Completed infusion; IV Intake: 1000ml ao 05:36 Drug: Zofran 4 mg Route: IVP; Site: right antecubital; jb4 06:47 Follow up: Response: No adverse reaction ao 05:50 Drug: Bentyl 20 mg Route: PO; jb4 06:47 Follow up: Response: No adverse reaction ao 06:59 Drug: Potassium Effervescent Tablet 50 mEq Route: PO; ao 06:59 Follow up: Response: No adverse reaction ao Disposition: 04/13/19 06:47 Discharged to Home. Impression: Other viral enteritis, Hypokalemia, Dehydration. - Condition is Stable. - Discharge Instructions: Food Choices to Help Relieve Diarrhea, Adult, Dehydration, Elderly, Diarrhea, Adult, Potassium Content of Foods, Hypokalemia, Rehydration, Elderly. - Prescriptions for Zofran 4 mg Oral Tablet - take 1 tablet by ORAL route every 12 hours As needed; 6 tablet. Lomotil 2.5- 0.025 mg Oral Tablet - take 2 tablet by ORAL route once daily As needed; 20 tablet. - Medication Reconciliation Form, Thank You Letter, Antibiotic Education, Prescription Opioid Use form. - Follow up: Private Physician; When: Upon discharge from the Emergency Department; Reason: Recheck today's complaints, Continuance of care. - Problem is new. - Symptoms have improved. Signatures: Dispatcher [employer] EDCollin Stahl, RN RN Myles Villalba RN RN jb4 Pérez Taylor MD MD tw4 Corrections: (The following items were deleted from the chart) 06:46 06:45 Normal except: NA 135; GLUC 127; BUN 21; GFR 65. tw4 tw4 06:47 06:47 04/13/2019 06:47 Discharged to Home. Impression: Other viral enteritis. Condition tw4 is Stable. Forms are Medication Reconciliation Form, Thank You Letter, Antibiotic Education, Prescription Opioid Use. Follow up: Private Physician; When: Upon discharge from the Emergency Department; Reason: Recheck today's complaints, Continuance of care. Problem is new. Symptoms have improved. tw4 07:01 06:47 04/13/2019 06:47 Discharged to Home. Impression: Other viral enteritis; ao Hypokalemia; Dehydration. Condition is Stable. Forms are Medication Reconciliation Form, Thank You Letter, Antibiotic Education, Prescription Opioid Use. Follow up: Private Physician; When: Upon discharge from the Emergency Department; Reason: Recheck today's complaints, Continuance of care. Problem is new. Symptoms have improved. tw4
[2019-04-13] MEDS ORDERED: POTASSIUM 25 MEQ EFFERV TAB ONE (06:53)
[2019-04-13 07:06] VITALS: TEMP 98.4
[2019-04-13 07:08] VITALS: BP 122/52; O2SAT 98
== END 2019-04-13 07:01 | disposition home or self-care (01) ==
LOC: ER 04:58
DX: B34.9 Viral infection, unspecified (principal); E86.0 Dehydration; E87.6 Hypokalemia; Z88.0 Allergy status to penicillin; Z88.6 Allergy status to analgesic agent; E03.9 Hypothyroidism, unspecified; I10 Essential (primary) hypertension; E78.5 Hyperlipidemia, unspecified; H40.9 Unspecified glaucoma
CPT/HCPCS: 96361; 85025; 80048; 36415; 80076; 83690; 96374; 99283; J7030; J2405